=== PATIENT | male | born 1965 | race Caucasian/White ===

== ENCOUNTER 2018-05-09 14:32 | Emergency (ER) | payer BC ==
[2018-05-09] MEDS ORDERED: HYDROmorphone 2 MG/ML SDV IM ONE (15:05)
[2018-05-09] MEDS ORDERED: Diazepam 5 MG Tab PO ONE (15:05)
[2018-05-09] MEDS ORDERED: Ondansetron 4 MG Tab.DIS PO ONE (15:05)
--- NOTE | 2018-05-09 15:05 | EDM.PDOC ---
ED HPI GENERAL MEDICAL PROBLEM - General Chief Complaint: Back Pain or Injury Stated Complaint: BACK AND HIP PAIN Time Seen by Provider: 05/09/18 14:59 Source of Information: Reports: Patient History Limitations: Reports: No Limitations - History of Present Illness INITIAL COMMENTS - FREE TEXT/NARRATIVE: History of present illness: []Patient has had 3 weeks of low back pain that is now radiating down to his left hip to his left thigh and knee and ankle. Eyes any urinary or fecal incontinence or numbness and tingling. 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 Past medical history: As per history of present illness and as reviewed below otherwise noncontributory. Surgical history: As per history of present illness and as reviewed below otherwise noncontributory. Social history: No reported history of drug or alcohol abuse. Family history: As per history of present illness and as reviewed below otherwise noncontributory. Physical exam: General: Well developed, well nourished in NAD HEENT: Atraumatic, normocephalic, pupils reactive, negative for conjunctival pallor or scleral icterus, mucous membranes moist, throat clear, neck supple, nontender, trachea midline. Lungs: Clear to auscultation, breath sounds equal bilaterally, chest nontender. Heart: S1S2, regular, negative for clicks, rubs, or JVD. Abdomen: NABS, Soft, nondistended, nontender. Negative for masses or hepatosplenomegaly. Negative for costovertebral tenderness. Pelvis: Stable nontender. Genitourinary: Deferred. Rectal: Deferred. Extremities: Atraumatic, negative for cords or calf pain. Neurovascular unremarkable. Neuro: Awake, alert, oriented. Cranial nerves II through XII unremarkable. Cerebellum unremarkable. Motor and sensory unremarkable throughout. Exam nonfocal. Skin:warm and dry Diagnostics: None Therapeutics: Dilaudid, Valium and Zofran ED Course: Unremarkable Impression: Left-sided sciatica Prescriptions: External, tramadol Plan: Follow-up with Dr. Yeager Definitive disposition and diagnosis as appropriate pending reevaluation and review of above. Left Hip Pain Score (Numeric/FACES): 8 - Related Data Allergies Allergy/AdvReac Type Severity Reaction Status Date / Time latex Allergy Rash Verified 05/09/18 14:54 Home Meds: Home Meds Aspirin [Ifeoma Chewable] 81 mg PO DAILY 08/22/13 [History] Insulin Lispro Prot/Lispro [HumaLOG Mix 75-25] 50 unit .XX BID 08/22/13 [History ] Lisinopril [Prinivil] 10 mg PO DAILY 08/22/13 [History] atorvaSTATin [Lipitor] 40 mg PO BEDTIME 08/22/13 [History] metFORMIN HCl [Metformin HCl ER] 1,000 mg PO BID 08/22/13 [History] Ramipril [Altace] 1.25 mg PO DAILY 10/05/15 [History] Cyclobenzaprine [Flexeril] 10 mg PO BID PRN #12 tab 05/09/18 [Rx] traMADol HCl [Tramadol HCl] 50 mg PO Q6H PRN #16 tablet 05/09/18 [Rx] Past Medical History HEENT History: Reports: None Cardiovascular History: Reports: High Cholesterol, Hypertension Respiratory History: Reports: None Gastrointestinal History: Reports: None Genitourinary History: Reports: Renal Calculus Musculoskeletal History: Reports: None Neurological History: Reports: None Psychiatric History: Reports: None Endocrine/Metabolic History: Reports: Diabetes, Type I, Obesity/BMI 30+ Hematologic History: Reports: None Immunologic History: Reports: None Oncologic (Cancer) History: Reports: None Dermatologic History: Reports: None - Infectious Disease History Infectious Disease History: Reports: None - Past Surgical History Head Surgeries/Procedures: Reports: None GI Surgical History: Reports: Cholecystectomy Musculoskeletal Surgical History: Reports: Shoulder Surgery Social & Family History - Family History Family Medical History: Noncontributory - Tobacco Use Smoking Status *Q: Current Every Day Smoker Years of Tobacco use: 30 Packs/Tins Daily: 0.5 - Recreational Drug Use Recreational Drug Use: No ED ROS GENERAL - Review of Systems Review Of Systems: ROS reveals no pertinent complaints other than HPI. ED EXAM,LOWER BACK PAIN/INJURY - Physical Exam Exam: See Below (See history of present illness) Course - Vital Signs Last Recorded V/S: Last Vital Signs Temp 96.8 F 05/09/18 14:51 Pulse 100 05/09/18 14:51 Resp 18 05/09/18 14:51 BP 148/91 H 05/09/18 14:51 Pulse Ox 96 05/09/18 14:51 - Orders/Labs/Meds Orders: Active Orders 24 hr Category Date Time Status Blood Glucose Check, Bedside [RC] ONETIME Care 05/09/18 16:03 Ordered Labs: Laboratory Tests 05/09/18 Range/Units 16:05 POC Glucose 126 H (60-110) mg/dL Meds: Medications Discontinued Medications Generic Name Dose Route Start Last Admin Trade Name Sam PRN Reason Stop Dose Admin Diazepam 5 mg 05/09/18 15:05 05/09/18 15:22 Valium. PO 05/09/18 15:06 5 mg ONETIME ONE Administration Hydromorphone HCl 1 mg 05/09/18 15:05 05/09/18 15:15 Dilaudid IM 05/09/18 15:06 Not Given ONETIME ONE Hydromorphone HCl 1 mg 05/09/18 15:14 05/09/18 15:22 Dilaudid IM 05/09/18 15:15 1 mg ONETIME ONE Administration Ondansetron HCl 4 mg 05/09/18 15:05 05/09/18 15:22 Zofran Odt PO 05/09/18 15:06 4 mg ONETIME ONE Administration Departure - Departure Time of Disposition: 16:06 Disposition: Home, Self-Care 01 Condition: Good Clinical Impression: Sciatica of left side - Discharge Information *PRESCRIPTION DRUG MONITORING PROGRAM REVIEWED*: No *COPY OF PRESCRIPTION DRUG MONITORING REPORT IN PATIENT MARIA GUADALUPE: No Prescriptions: Cyclobenzaprine [Flexeril] 10 mg PO BID PRN #12 tab PRN Reason: Pain traMADol HCl [Tramadol HCl] 50 mg PO Q6H PRN #16 tablet PRN Reason: Pain Referrals: Xavi Abdul MD [Primary Care Provider] - Yumiko Hill DO [Physician] - (Call for Next available appointment) Forms: ED Department Discharge - My Orders Last 24 Hours: My Active Orders 05/09/18 16:03 Blood Glucose Check, Bedside [RC] ONETIME - Assessment/Plan Last 24 Hours: My Active Orders 05/09/18 16:03 Blood Glucose Check, Bedside [RC] ONETIME
[2018-05-09] MEDS ORDERED: HYDROmorphone 1 MG/ML Syringe IM ONE (15:14)
[2018-05-09 16:26] VITALS: BP 136/88
== END 2018-05-09 16:27 | disposition home or self-care (01) ==
LOC: MW.ED 14:32
DX: M54.42 Lumbago with sciatica, left side (principal); I10 Essential (primary) hypertension; E10.9 Type 1 diabetes mellitus without complications; E66.9 Obesity, unspecified; F17.210 Nicotine dependence, cigarettes, uncomplicated; Z91.040 Latex allergy status; Z79.82 Long term (current) use of aspirin; Z79.899 Other long term (current) drug therapy
CPT/HCPCS: 82962; 96372; 99283; A9270; J1170

== ENCOUNTER 2018-06-30 02:31 | Emergency (ER) | payer BC ==
[2018-06-30] MEDS ORDERED: Sodium Chloride 0.9% 1,000 ML IV ONE (02:48)
[2018-06-30] MEDS ORDERED: Ketorolac 30 MG/ML SDV IVPUSH ONE (02:48)
[2018-06-30] MEDS ORDERED: Ondansetron 4 MG/2 ML SDV IVPUSH ONE (02:48)
--- NOTE | 2018-06-30 02:49 | EDM.PDOC ---
ED HPI GENERAL MEDICAL PROBLEM - General Chief Complaint: Flank Pain Stated Complaint: ABDOMINAL PAIN Time Seen by Provider: 06/30/18 02:49 Source of Information: Reports: Patient - History of Present Illness INITIAL COMMENTS - FREE TEXT/NARRATIVE: HISTORY AND PHYSICAL: History of present illness: [pt presents with inabiity to urinate, c/o dribbling with urination and right flank pain, h/o renal stones, pain consistant with previous stones no f/n/v/c/s ] Review of systems: As per history of present illness and below otherwise all systems reviewed and negative. Past medical history: As per history of present illness and as reviewed below otherwise noncontributory. Surgical history: As per history of present illness and as reviewed below otherwise noncontributory. Social history: No reported history of drug or alcohol abuse. Family history: As per history of present illness and as reviewed below otherwise noncontributory. Physical exam: HEENT: Atraumatic, normocephalic, pupils reactive, negative for conjunctival pallor or scleral icterus, mucous membranes moist, throat clear, neck supple, nontender, trachea midline. Lungs: Clear to auscultation, breath sounds equal bilaterally, chest nontender. Heart: S1S2, regular, negative for clicks, rubs, or JVD. Abdomen: Soft, nondistended, nontender. Negative for masses or hepatosplenomegaly. Negative for costovertebral tenderness. Pelvis: Stable nontender. Genitourinary: Deferred. Rectal: Deferred. Extremities: Atraumatic, negative for cords or calf pain. Neurovascular unremarkable. Neuro: Awake, alert, oriented. Cranial nerves II through XII unremarkable. Cerebellum unremarkable. Motor and sensory unremarkable throughout. Exam nonfocal. Diagnostics: [cbc, cmp, ua trop lip bladder scan abd / pelvis ct no contrast ] Therapeutics: [normal saline toradol zofran ms 2mg fc ] Impression: [flank pain-reolved urine retention-resolved ] Definitive disposition and diagnosis as appropriate pending reevaluation and review of above. lower back Pain Score (Numeric/FACES): 6 - Related Data Allergies Allergy/AdvReac Type Severity Reaction Status Date / Time latex Allergy Rash Verified 06/30/18 02:43 Home Meds: Home Meds Aspirin [Ifeoma Chewable] 81 mg PO DAILY 08/22/13 [History] Insulin Lispro Prot/Lispro [HumaLOG Mix 75-25] 50 unit .XX BID 08/22/13 [History ] Lisinopril [Prinivil] 10 mg PO DAILY 08/22/13 [History] atorvaSTATin [Lipitor] 40 mg PO BEDTIME 08/22/13 [History] metFORMIN HCl [Metformin HCl ER] 1,000 mg PO BID 08/22/13 [History] Ramipril [Altace] 1.25 mg PO DAILY 10/05/15 [History] Cyclobenzaprine [Flexeril] 10 mg PO BID PRN #12 tab 05/09/18 [Rx] traMADol HCl [Tramadol HCl] 50 mg PO Q6H PRN #16 tablet 05/09/18 [Rx] Past Medical History HEENT History: Reports: None Cardiovascular History: Reports: High Cholesterol, Hypertension Respiratory History: Reports: None Gastrointestinal History: Reports: None Genitourinary History: Reports: Renal Calculus Musculoskeletal History: Reports: None Neurological History: Reports: None Psychiatric History: Reports: None Endocrine/Metabolic History: Reports: Diabetes, Type I, Obesity/BMI 30+ Hematologic History: Reports: None Immunologic History: Reports: None Oncologic (Cancer) History: Reports: None Dermatologic History: Reports: None - Infectious Disease History Infectious Disease History: Reports: None - Past Surgical History Head Surgeries/Procedures: Reports: None Cardiovascular Surgical History: Reports: None GI Surgical History: Reports: Cholecystectomy Male Surgical History: Reports: None Endocrine Surgical History: Reports: None Musculoskeletal Surgical History: Reports: Shoulder Surgery Social & Family History - Family History Family Medical History: Noncontributory - Tobacco Use Smoking Status *Q: Current Every Day Smoker Years of Tobacco use: 20 Packs/Tins Daily: 0.5 - Caffeine Use Caffeine Use: Reports: Coffee - Recreational Drug Use Recreational Drug Use: No ED ROS GENERAL - Review of Systems Review Of Systems: See Below ED EXAM, GENERAL - Physical Exam Exam: See Below Course - Vital Signs Last Recorded V/S: Last Vital Signs Temp 97.2 F 06/30/18 02:40 Pulse 107 H 06/30/18 02:40 Resp 19 06/30/18 02:40 BP 145/85 H 06/30/18 02:40 Pulse Ox 97 06/30/18 02:40 - Orders/Labs/Meds Labs: Laboratory Tests 06/30/18 06/30/1806/30/19 Range/Units 02:50 02:55 02:55 WBC 12.80 H (4.0-11.0) K/uL RBC 4.62 (4.50-5.90) M/uL Hgb 15.1 (13.0-17.0) g/dL Hct 45.3 (38.0-50.0) % MCV 98.1 H (80.0-98.0) fL MCH 32.7 H (27.0-32.0) pg MCHC 33.3 (31.0-37.0) g/dL RDW Std Deviation 48.2 (28.0-62.0) fl RDW Coeff of Benny 14 (11.0-15.0) % Plt Count 214 (150-400) K/uL MPV 11.50 (7.40-12.00) fL Neut % (Auto) 79.1 (48.0-80.0) % Lymph % (Auto) 14.9 L (16.0-40.0) % Bremer % (Auto) 5.8 (0.0-15.0) % Eos % (Auto) 0.1 (0.0-7.0) % Baso % (Auto) 0.1 (0.0-1.5) % Neut # (Auto) 10.1 H (1.4-5.7) K/uL Lymph # (Auto) 1.9 (0.6-2.4) K/uL Bremer # (Auto) 0.7 (0.0-0.8) K/uL Eos # (Auto) 0.0 (0.0-0.7) K/uL Baso # (Auto) 0.0 (0.0-0.1) K/uL Sodium 133 L (136-148) mmol/L Potassium 4.3 (3.5-5.1) mmol/L Chloride 99 (98-107) mmol/L Carbon Dioxide 21.6 (21.0-32.0) mmol/L BUN 17 (7.0-18.0) mg/dL Creatinine 1.0 (0.8-1.3) mg/dL Est Cr Clr Drug Dosing 88.21 mL/min Estimated GFR (MDRD) > 60.0 ml/min Glucose 168 H (74-106) mg/dL Calcium 8.6 (8.5-10.1) mg/dL Total Bilirubin 0.4 (0.2-1.0) mg/dL AST 18 (15-37) IU/L ALT 23 (14-63) IU/L Alkaline Phosphatase 66 (46-116) U/L Troponin I < 0.050 (0.000-0.056) ng/mL Total Protein 8.1 (6.4-8.2) g/dL Albumin 4.0 (3.4-5.0) g/dL Globulin 4.1 H (2.6-4.0) g/dL Albumin/Globulin Ratio 1.0 (0.9-1.6) Lipase 133 (73-393) U/L Urine Color YELLOW Urine Appearance CLEAR Urine pH 5.5 (5.0-8.0) Ur Specific Ball 1.020 (1.001-1.035) Urine Protein NEGATIVE (NEGATIVE) mg/dL Urine Glucose (UA) NEGATIVE (NEGATIVE) mg/dL Urine Ketones 15 H (NEGATIVE) mg/dL Urine Occult Blood TRACE-INTACT H (NEGATIVE) Urine Nitrite NEGATIVE (NEGATIVE) Urine Bilirubin NEGATIVE (NEGATIVE) Urine Urobilinogen 0.2 (<2.0) EU/dL Ur Leukocyte Esterase NEGATIVE (NEGATIVE) Urine RBC 0-3 (0-2/HPF) Urine WBC 0-1 (0-5/HPF) Ur Epithelial Cells RARE (NONE-FEW) Urine Bacteria FEW (NEGATIVE) Meds: Medications Discontinued Medications Generic Name Dose Route Start Last Admin Trade Name Freq PRN Reason Stop Dose Admin Hydromorphone HCl 1 mg 06/30/18 03:14 06/30/18 03:31 Dilaudid IVPUSH 06/30/18 03:15 Not Given ONETIME ONE Hydromorphone HCl Confirm 06/30/18 03:24 06/30/18 03:31 Dilaudid Administered 06/30/18 03:25 Not Given Dose 1 mg .ROUTE .STK-MED ONE Hydromorphone HCl 1 mg 06/30/18 03:30 06/30/18 03:30 Dilaudid IVPUSH 06/30/18 03:31 1 mg NOW STA Administration Sodium Chloride 1,000 mls @ 999 mls/hr 06/30/18 02:48 06/30/18 02:53 Normal Saline IV 06/30/18 03:48 999 mls/hr STAT ONE Administration Ketorolac Tromethamine 30 mg 06/30/18 02:48 06/30/18 02:54 Toradol IVPUSH 06/30/18 02:49 30 mg ONETIME ONE Administration Ondansetron HCl 8 mg 06/30/18 02:48 06/30/18 02:54 Zofran IVPUSH 06/30/18 02:49 8 mg ONETIME ONE Administration Departure - Departure Time of Disposition: 05:00 Disposition: Home, Self-Care 01 Condition: Good Clinical Impression: Urine retention - Discharge Information Referrals: PCP,None [Primary Care Provider] - Forms: ED Department Discharge Additional Instructions: stop flexeril return in 48 hours to remove lee catheter The following information is given to patients seen in the emergency department who are being discharged to home. This information is to outline your options for follow-up care. We provide all patients seen in our emergency department with a follow-up referral. The need for follow-up, as well as the timing and circumstances, are variable depending upon the specifics of your emergency department visit. If you don't have a primary care physician on staff, we will provide you with a referral. We always advise you to contact your personal physician following an emergency department visit to inform them of the circumstance of the visit and for follow-up with them and/or the need for any referrals to a consulting specialist. The emergency department will also refer you to a specialist when appropriate. This referral assures that you have the opportunity for follow-up care with a specialist. All of these measure are taken in an effort to provide you with optimal care, which includes your follow-up. Under all circumstances we always encourage you to contact your private physician who remains a resource for coordinating your care. When calling for follow-up care, please make the office aware that this follow-up is from your recent emergency room visit. If for any reason you are refused follow-up, please contact the [facility] emergency department at and asked to speak to the emergency department charge nurse.
[2018-06-30] MEDS ORDERED: HYDROmorphone 2 MG/ML SDV IVPUSH ONE (03:14)
[2018-06-30] MEDS ORDERED: HYDROmorphone 1 MG/ML Syringe ONE (03:24)
[2018-06-30 03:27] LABS: CHLORIDE,CL 99 mmol/L (98-107); SODIUM,NA 133 mmol/L (136-148)
[2018-06-30] MEDS ORDERED: HYDROmorphone 1 MG/ML Syringe IVPUSH STA (03:30)
--- NOTE | 2018-06-30 04:17 | CT ---
INDICATION: Right flank pain TECHNIQUE: CT abdomen and pelvis without contrast. COMPARISON: Abdomen and pelvis CT 01/15/2016 FINDINGS: Lower chest: Unremarkable. Liver: Normal in size and attenuation. No masses. Gallbladder and bile ducts: Status post cholecystectomy. Pancreas: Unremarkable. No mass or inflammation. Spleen: Normal in size. No masses. Adrenal glands: Normal in size. No nodules. Kidneys: Exophytic right renal cyst measuring 4.4 centimeters. Minimal bilateral hydronephrosis which extends to the level of the bladder without definite ureteral stone. GI tract: The stomach is unremarkable. There are no dilated loops of bowel. Terminal ileum is unremarkable. Appendix unremarkable. Vasculature: Atherosclerosis. Subcentimeter retroperitoneal lymph nodes. Pelvis: Mild prostatic enlargement. Moderate distention of the bladder. Bones: Unremarkable for age. IMPRESSION: 1. Minimal bilateral hydronephrosis extending to the level of the bladder with moderate bladder distention. No definite ureteral stone. Mild prostatic enlargement. 2. No dilated loops of large or small intestine. Unremarkable appendix. Please note that all CT scans at this facility use dose modulation, iterative reconstruction, and/or weight-based dosing when appropriate to reduce radiation dose to as low as reasonably achievable. Dictated by Addi Patiño MD @ Jun 30 2018 4:07AM Signed by Dr. Addi Patiño @ Jun 30 2018 4:15AM
[2018-06-30 05:39] VITALS: BP 103/64
== END 2018-06-30 05:40 | disposition home or self-care (01) ==
LOC: MW.ED 02:31
DX: R33.9 Retention of urine, unspecified (principal); F17.210 Nicotine dependence, cigarettes, uncomplicated; Z79.899 Other long term (current) drug therapy; Z79.82 Long term (current) use of aspirin; Z79.84 Long term (current) use of oral hypoglycemic drugs
CPT/HCPCS: 74176; 80053; 81001; 83690; 84484; 85025; 96361; 96374; 96375; 99284; J1170; J1885; J2405; J7040

== ENCOUNTER 2018-07-01 06:54 | Emergency (ER) | payer BC ==
[2018-07-01 13:16] VITALS: BP 138/97
== END 2018-07-01 07:43 | disposition left against medical advice (07) ==
LOC: MW.ED 06:54
DX: Z53.21 Procedure and treatment not carried out due to patient leaving prior to being seen by health care provider (principal)
CPT/HCPCS: 99283

== ENCOUNTER 2019-03-05 11:48 | Emergency (ER) | payer BC ==
[2019-03-05] MEDS ORDERED: HYDROmorphone 1 MG/ML Syringe IM ONE (12:08)
--- NOTE | 2019-03-05 12:12 | EDM.PDOC ---
ED HPI GENERAL MEDICAL PROBLEM - General Chief Complaint: Back Pain or Injury Stated Complaint: BACK PAIN Time Seen by Provider: 03/05/19 11:50 Source of Information: Reports: Patient History Limitations: Reports: No Limitations - History of Present Illness INITIAL COMMENTS - FREE TEXT/NARRATIVE: HISTORY AND PHYSICAL: History of present illness: patient is a 53-year-old male who presents to the emergency room with complaints of chronic low lumbar back pain. He states this has been intermittently bothering him over the past few years. Most recently he saw Dr. Small who had performed an MRI (06/19) which showed multilevel degenerative disc disease. He was informed that his back pain was "not bad enough to require surgery". He has been using Tylenol, ibuprofen, tramadol and muscle relaxers in the past to help with his discomfort. He also does massage and chiropractic therapy with minimal relief. He states for the past few months he has done well with [id number] products. A few days ago he was trying to get up out of his recliner when he felt sharp pain that radiates across the entire lumbar region into the right gluteus and posterior hamstring. He did try to get into his primary care provider but is not able to get an appointment until 03/26/19. Yesterday he had tried to use massage therapy and an adjustment by the chiropractor without any relief. He denies any new injury, trauma or falls. He denies any urinary or fecal incontinence. Denies any numbness, tingling or extremity weakness. No systemic complaints. Review of systems: As per history of present illness and below otherwise all systems reviewed and negative. Past medical history: As per history of present illness and as reviewed below otherwise noncontributory. Surgical history: As per history of present illness and as reviewed below otherwise noncontributory. Social history: See social history for further information Family history: As per history of present illness and as reviewed below otherwise noncontributory. Physical exam: General: well-developed and well-nourished 53-year-old male. Alert and oriented. Nontoxic appearing and in no acute distress. HEENT: Atraumatic, normocephalic, pupils equal and reactive bilaterally, negative for conjunctival pallor or scleral icterus, mucous membranes moist, trachea midline. No drooling or trismus noted. No meningeal signs. No hot potato voice noted. Lungs: Clear to auscultation, breath sounds equal bilaterally, chest nontender. Heart: S1S2, regular rate and rhythm without overt murmur Abdomen: Soft, nondistended, nontender. Negative for costovertebral tenderness. Pelvis: Stable nontender. C-spine/Back: No pinpoint vertebral tenderness upon palpation. No crepitus, step -offs or obvious deformities. Patient is ambulatory into the emergency room without difficulty or deficit. Able to rock back on heels and walk on toes. Denies any urinary or fecal incontinence. Denies any numbness, tingling or saddle paresthesia. Skin: Intact, warm, dry. No lesions or rashes noted. Extremities: Atraumatic, moves all extremities per self without difficulty or deficits, negative for cords or calf pain. Neurovascular unremarkable. Neuro: Awake, alert, oriented. Cranial nerves II through XII unremarkable. Cerebellum unremarkable. Motor and sensory unremarkable throughout. Exam nonfocal. Notes: patient states that he prefers not to use any muscle relaxers as he has had a problem with urinary retention with these. Supportive care measures were reviewed and discussed. Voices understanding and is agreeable to plan of care. Denies any further questions or concerns at this time. Diagnostics: Declines Therapeutics: Dilaudid IM Prescription: Galata Medrol Dose jay jay Impression: Chronic lumbar back pain Plan: 1. The medication you received today does cause drowsiness, so do not drive for the remaining day 2. When resting please lay on a flat firm surface. Limit your immobility to prevent muscle stiffness. Get up to ambulate/move around/gentle stretching multiple times throughout the day. May alternate heat and ice to the painful areas 3. Tylenol and/or Ibuprofen as needed for back pain. Galata as directed, this medication may cause drowsiness a do not take it will driving her needing to be functioning outside of the house. 4. Please follow-up with your primary care provider as we discussed. Return to the ED as needed and as discussed. Definitive disposition and diagnosis as appropriate pending reevaluation and review of above. lower back Pain Score (Numeric/FACES): 10 - Related Data Allergies Allergy/AdvReac Type Severity Reaction Status Date / Time latex Allergy Rash Verified 03/05/19 11:54 Home Meds: Home Meds Aspirin [Ifeoma Chewable] 81 mg PO DAILY 08/22/13 [History] Insulin Lispro Prot/Lispro [HumaLOG Mix 75-25] 50 unit .XX BID 08/22/13 [History ] Lisinopril [Prinivil] 10 mg PO DAILY 08/22/13 [History] atorvaSTATin [Lipitor] 40 mg PO BEDTIME 08/22/13 [History] metFORMIN HCl [Metformin HCl ER] 1,000 mg PO BID 08/22/13 [History] Ramipril [Altace] 1.25 mg PO DAILY 10/05/15 [History] Acetaminophen/HYDROcodone [Galata 325-5 MG] 1 dose PO Q4H #20 tablet 03/05/19 [Rx ] methylPREDNISolone [Medrol] 1 dose PO DAILY 6 Days #1 dospk 03/05/19 [Rx] Past Medical History HEENT History: Reports: None Cardiovascular History: Reports: High Cholesterol, Hypertension Respiratory History: Reports: None Gastrointestinal History: Reports: None Genitourinary History: Reports: Renal Calculus Musculoskeletal History: Reports: None Neurological History: Reports: None Psychiatric History: Reports: None Endocrine/Metabolic History: Reports: Diabetes, Type I, Obesity/BMI 30+ Hematologic History: Reports: None Immunologic History: Reports: None Oncologic (Cancer) History: Reports: None Dermatologic History: Reports: None - Infectious Disease History Infectious Disease History: Reports: None - Past Surgical History Head Surgeries/Procedures: Reports: None HEENT Surgical History: Reports: None Cardiovascular Surgical History: Reports: None Respiratory Surgical History: Reports: None GI Surgical History: Reports: Cholecystectomy Male Surgical History: Reports: None Endocrine Surgical History: Reports: None Neurological Surgical History: Reports: None Musculoskeletal Surgical History: Reports: Shoulder Surgery Dermatological Surgical History: Reports: None Social & Family History - Family History Family Medical History: Noncontributory - Tobacco Use Smoking Status *Q: Current Every Day Smoker Years of Tobacco use: 30 Packs/Tins Daily: 0.4 - Caffeine Use Caffeine Use: Reports: Coffee, Soda - Recreational Drug Use Recreational Drug Use: No ED ROS GENERAL - Review of Systems Review Of Systems: ROS reveals no pertinent complaints other than HPI. ED EXAM,LOWER BACK PAIN/INJURY - Physical Exam Exam: See Below (See dictation) Course - Vital Signs Last Recorded V/S: Last Vital Signs Temp 97.2 F 03/05/19 11:57 Pulse 84 03/05/19 11:57 Resp 18 03/05/19 11:57 BP 154/83 H 03/05/19 11:57 Pulse Ox 97 03/05/19 11:57 - Orders/Labs/Meds Meds: Medications Discontinued Medications Generic Name Dose Route Start Last Admin Trade Name Sam PRN Reason Stop Dose Admin Hydromorphone HCl 1 mg 03/05/19 12:08 Dilaudid IM 03/05/19 12:09 ONETIME ONE Departure - Departure Time of Disposition: 12:11 Disposition: Home, Self-Care 01 Clinical Impression: Chronic back pain Qualifiers: Back pain location: low back pain Back pain laterality: bilateral Sciatica presence: with sciatica Sciatica laterality: sciatica of right side Qualified Code(s): M54.41 - Lumbago with sciatica, right side; G89.29 - Other chronic pain - Discharge Information Prescriptions: Acetaminophen/HYDROcodone [Galata 325-5 MG] 1 dose PO Q4H #20 tablet methylPREDNISolone [Medrol] 1 dose PO DAILY 6 Days #1 dospk Instructions: Chronic Back Pain, [id number] Referrals: Xavi Abdul MD [Primary Care Provider] - Forms: ED Department Discharge Additional Instructions: The following information is given to patients seen in the emergency department who are being discharged to home. This information is to outline your options for follow-up care. We provide all patients seen in our emergency department with a follow-up referral. The need for follow-up, as well as the timing and circumstances, are variable depending upon the specifics of your emergency department visit. If you don't have a primary care physician on staff, we will provide you with a referral. We always advise you to contact your personal physician following an emergency department visit to inform them of the circumstance of the visit and for follow-up with them and/or the need for any referrals to a consulting specialist. The emergency department will also refer you to a specialist when appropriate. This referral assures that you have the opportunity for follow-up care with a specialist. All of these measure are taken in an effort to provide you with optimal care, which includes your follow-up. Under all circumstances we always encourage you to contact your private physician who remains a resource for coordinating your care. When calling for follow-up care, please make the office aware that this follow-up is from your recent emergency room visit. If for any reason you are refused follow-up, please contact the [facility] at and asked to speak to the emergency department charge nurse. [facility] [address] [place] [address] [facility] [address] [place] [id number] 1. The medication you received today does cause drowsiness, so do not drive for the remaining day 2. When resting please lay on a flat firm surface. Limit your immobility to prevent muscle stiffness. Get up to ambulate/move around/gentle stretching multiple times throughout the day. May alternate heat and ice to the painful areas 3. Tylenol and/or Ibuprofen as needed for back pain. Oliver as directed, this medication may cause drowsiness a do not take it will driving her needing to be functioning outside of the house. 4. Please follow-up with your primary care provider as we discussed. Return to the ED as needed and as discussed.
[2019-03-05 12:36] VITALS: BP 128/72; PULSE 73
== END 2019-03-05 12:37 | disposition home or self-care (01) ==
LOC: MW.ED 11:48
DX: M54.41 Lumbago with sciatica, right side (principal); I10 Essential (primary) hypertension; E10.9 Type 1 diabetes mellitus without complications; E66.9 Obesity, unspecified; E78.00 Pure hypercholesterolemia, unspecified; F17.210 Nicotine dependence, cigarettes, uncomplicated; Z68.30 Body mass index [BMI] 30.0-30.9, adult; Z79.4 Long term (current) use of insulin; Z79.82 Long term (current) use of aspirin; Z79.899 Other long term (current) drug therapy; Z91.040 Latex allergy status
CPT/HCPCS: 96372; 99283; J1170

== ENCOUNTER 2019-03-12 10:57 | Day surgery (SDC) | payer BC ==
[~2019-03-12 10:57] MED LIST: Betamethasone Acetate/Betamethasone Sod Phosphate 30 MG/5 ML MDV EPIDUR ONE; Iopamidol 200-M 10 ML vial ITHECAL ONE; Lidocaine 2% 5 ML SDV INJECT ONE; Ropivacaine 0.5% 5 MG/ML 30 ML SDV INJECT ONE
--- NOTE | 2019-03-12 21:53 | OR ---
SURGEON: Yumiko Hill D.O. DATE OF PROCEDURE: 03/12/2019 PRIMARY SURGEON: Yumiko Hill D.O. DIVISION HEAD: OR staff present: 1. RT Mary Jane. 2. Maria Redd RN. 3. KENNEY Harp. PREOPERATIVE DIAGNOSES: 1. Lumbar degenerative disk disease and Lumbar spinal stenosis, L3-4, L4-5, and L5-S1. 3. Chronic low back pain. POSTOPERATIVE DIAGNOSES: 1. Lumbar degenerative disk disease. and Lumbar spinal stenosis, L3-4, L4-5, and L5-S1. 2. Chronic low back pain. PROCEDURES PERFORMED: 1. Lumbar intralaminar epidural steroid injection at L4-5. 2. Fluoroscopic guidance for needle placement. 3. Local with oral Valium for sedation. SCREENING QUESTIONS: The patient answered "no" to all of the following questions: 1. Are you allergic to latex? 2. Do you have a bleeding disorder? 3. Do you have any current local or systemic infections? 4. Are you taking any anti-inflammatories or blood thinners? 5. Do you have any joint replacements, heart valve replacements, or a pacemaker? DESCRIPTION OF PROCEDURE: The patient had the procedure thoroughly explained including all possible risks, benefits and alternatives. Consent was signed in my clinic indicating understanding and willingness to proceed. The patient presented to [facility] and was escorted to the dressing room to disrobe and change into a hospital gown. Preoperative vital signs were taken and stable. The patient reported that Valium was taken prior to the procedure. The patient was brought back to the procedure room and placed in the prone position on the procedure room table. A pillow was placed under the hips in order to flatten the lumbar lordosis. The back was prepped with ChloraPrep and sterilely draped. All personnel in the operating room were dressed in appropriate attire including surgical scrubs, head and shoe covers. This was to ensure sterility while in the treatment room. During the time fluoroscopy was in use, all personnel in the operating room wore lead hand with thyroid collars. Sterile technique was used throughout the procedure. The patient was awake and conversant throughout the procedure. There was no evidence of infection at the site of needle insertion. Skeletal landmarks were identified under fluoroscopy for the lumbar epidural. Skin was anesthetized with 2% lidocaine with a sterile 27-gauge 1.5 inch needle. Then a 20-gauge Tuohy epidural needle was placed in the epidural space with loss of resistance technique under fluoroscopic guidance. No heme, cerebrospinal fluid, or paresthesias were noted. Isovue-200 contrast dye was injected in 0.2 cubic centimeter increments and seen to outline the epidural space in both AP and lateral views. There was no intravascular flow pattern observed under live fluoroscopy. Then 12 milligrams of Celestone and local was slowly injected after negative aspiration. The patient tolerated the procedure well. Vital signs were stable during and after the procedure. The staff escorted the patient to the recovery area. After the procedure and the recovery room patient complained of a severe frontal headache that was non-positional. He had elevated blood sugar at 151. I recommended he have an IV fluids and he stated the headache was much improved and he was drinking fluids and declined an IV. The patient was released in stable condition after a brief stay in the recovery room monitored by the nurse. The patient was given both oral and written discharge and follow up instructions with recommendation to follow up given for 2-3 weeks. The patient voiced understanding including understanding of those signs and symptoms that would require emergency care. The patient knows how to contact the office if there are any additional problems or questions in the meantime. PREOPERATIVE PAIN: /10. POSTOPERATIVE PAIN: /10. FOLLOWUP: Follow up in the Pain Clinic in 3 weeks. CARLOS A YEBOAH /[id number] KRISTIAN
== END 2019-03-12 13:30 | disposition home or self-care (01) ==
LOC: MW.SDS 10:57
PROVIDERS: ATTEND Anesthesiology
DX: G89.29 Other chronic pain (principal); M51.16 Intervertebral disc disorders with radiculopathy, lumbar region; M48.061 Spinal stenosis, lumbar region without neurogenic claudication; M48.07 Spinal stenosis, lumbosacral region; M51.17 Intervertebral disc disorders with radiculopathy, lumbosacral region; M79.18 Myalgia, other site; M47.26 Other spondylosis with radiculopathy, lumbar region; E11.9 Type 2 diabetes mellitus without complications; Z91.040 Latex allergy status; Z79.82 Long term (current) use of aspirin; Z79.4 Long term (current) use of insulin; Z79.899 Other long term (current) drug therapy
CPT/HCPCS: 62323; 82962; J0702

== ENCOUNTER 2019-03-12 19:51 | Emergency (ER) | payer BC ==
[2019-03-12] MEDS ORDERED: Sodium Chloride 0.9% 1,000 ML IV ONE (19:56)
--- NOTE | 2019-03-12 19:59 | EDM.PDOC ---
ED HPI GENERAL MEDICAL PROBLEM - General Chief Complaint: Cardiovascular Problem Stated Complaint: POST SURGERY ISSUES Time Seen by Provider: 03/12/19 19:54 - History of Present Illness INITIAL COMMENTS - FREE TEXT/NARRATIVE: HISTORY AND PHYSICAL: History of present illness: Patient 53-year-old white male history chronic back pain who had spinal steroid injection earlier today with subsequent headache he's also had elevated blood sugar she states had palpitations at times systolically and he denies chest pain nausea vomiting fever chills his headache is somewhat postural worse with sitting or standing improved with lying Review of systems: As per history of present illness and below otherwise all systems reviewed and negative. Past medical history: As per history of present illness and as reviewed below otherwise noncontributory. Surgical history: As per history of present illness and as reviewed below otherwise noncontributory. Social history: No reported history of drug or alcohol abuse. Family history: As per history of present illness and as reviewed below otherwise noncontributory. Physical exam: HEENT: Atraumatic, normocephalic, pupils reactive, negative for conjunctival pallor or scleral icterus, mucous membranes moist, throat clear, neck supple, nontender, trachea midline. Lungs: Clear to auscultation, breath sounds equal bilaterally, chest nontender. Heart: S1S2, regular, negative for clicks, rubs, or JVD. Abdomen: Soft, nondistended, nontender. Negative for masses or hepatosplenomegaly. Negative for costovertebral tenderness. Pelvis: Stable nontender. Genitourinary: Deferred. Rectal: Deferred. Extremities: Atraumatic, negative for cords or calf pain. Neurovascular unremarkable. Neuro: Awake, alert, oriented. Cranial nerves II through XII unremarkable. Cerebellum unremarkable. Motor and sensory unremarkable throughout. Exam nonfocal. Diagnostics: CBC CMP troponin PT/INR chest x-ray ABG EKG Therapeutics: Saline 1 L bolus blood patch per anesthesia Impression: #1 palpitations #2 hyperglycemia #3 recent spinal steroid injection #4 chronic back pain Definitive disposition and diagnosis as appropriate pending reevaluation and review of above. back area Pain Score (Numeric/FACES): 5 - Related Data Allergies Allergy/AdvReac Type Severity Reaction Status Date / Time latex Allergy Rash Verified 03/12/19 19:53 Home Meds: Home Meds Aspirin [Ifeoma Chewable] 81 mg PO DAILY 08/22/13 [History] Insulin Lispro Prot/Lispro [HumaLOG Mix 75-25] 50 unit .XX BID 08/22/13 [History ] Lisinopril [Prinivil] 10 mg PO DAILY 08/22/13 [History] atorvaSTATin [Lipitor] 40 mg PO BEDTIME 08/22/13 [History] metFORMIN HCl [Metformin HCl ER] 1,000 mg PO BID 08/22/13 [History] Ramipril [Altace] 1.25 mg PO DAILY 10/05/15 [History] Acetaminophen/HYDROcodone [Mclean 325-5 MG] 1 dose PO Q4H #20 tablet 03/05/19 [Rx ] methylPREDNISolone [Medrol] 1 dose PO DAILY 6 Days #1 dospk 03/05/19 [Rx] Past Medical History HEENT History: Reports: None Cardiovascular History: Reports: High Cholesterol, Hypertension Respiratory History: Reports: None Gastrointestinal History: Reports: None Genitourinary History: Reports: Renal Calculus Musculoskeletal History: Reports: None Neurological History: Reports: None Psychiatric History: Reports: None Endocrine/Metabolic History: Reports: Diabetes, Type I, Obesity/BMI 30+ Hematologic History: Reports: None Immunologic History: Reports: None Oncologic (Cancer) History: Reports: None Dermatologic History: Reports: None - Infectious Disease History Infectious Disease History: Reports: None - Past Surgical History Head Surgeries/Procedures: Reports: None HEENT Surgical History: Reports: None Cardiovascular Surgical History: Reports: None Respiratory Surgical History: Reports: None GI Surgical History: Reports: Cholecystectomy Male Surgical History: Reports: None Endocrine Surgical History: Reports: None Neurological Surgical History: Reports: None Musculoskeletal Surgical History: Reports: Shoulder Surgery Dermatological Surgical History: Reports: None Social & Family History - Family History Family Medical History: Noncontributory - Caffeine Use Caffeine Use: Reports: Coffee, Soda ED ROS GENERAL - Review of Systems Review Of Systems: Comprehensive ROS is negative, except as noted in HPI. ED EXAM, GENERAL - Physical Exam Exam: See Below (See dictation) Course - Vital Signs Text/Narrative:: Discussed with patient admission for observation patient declines agrees to close follow-up with his private doctor and return as needed as discussed Last Recorded V/S: Last Vital Signs Temp 36.3 C 03/12/19 20:59 Pulse 84 03/12/19 20:59 Resp 18 03/12/19 20:59 BP 144/89 H 03/12/19 20:59 Pulse Ox 95 03/12/19 20:59 - Orders/Labs/Meds Orders: Active Orders 24 hr Category Date Time Status Blood Glucose Check, Bedside [RC] ONETIME Care 03/12/19 21:00 Active EKG 12 Lead [EKG Documentation Completion] [RC] STAT Care 03/12/19 20:36 Active EKG Documentation Completion [RC] STAT Care 03/12/19 19:56 Active Labs: Laboratory Tests 03/12/19 03/12/19 03/12/19 Range/Units 19:45 19:45 19:45 WBC 9.79 (4.0-11.0) K/uL RBC 4.95 (4.50-5.90) M/uL Hgb 16.6 (13.0-17.0) g/dL Hct 48.8 (38.0-50.0) % MCV 98.6 H (80.0-98.0) fL MCH 33.5 H (27.0-32.0) pg MCHC 34.0 (31.0-37.0) g/dL RDW Std Deviation 51.4 (28.0-62.0) fl RDW Coeff of Benny 14 (11.0-15.0) % Plt Count 238 (150-400) K/uL MPV 11.80 (7.40-12.00) fL Neut % (Auto) 83.8 H (48.0-80.0) % Lymph % (Auto) 11.7 L (16.0-40.0) % Bowie % (Auto) 4.4 (0.0-15.0) % Eos % (Auto) 0.0 (0.0-7.0) % Baso % (Auto) 0.1 (0.0-1.5) % Neut # (Auto) 8.2 H (1.4-5.7) K/uL Lymph # (Auto) 1.2 (0.6-2.4) K/uL Bowie # (Auto) 0.4 (0.0-0.8) K/uL Eos # (Auto) 0.0 (0.0-0.7) K/uL Baso # (Auto) 0.0 (0.0-0.1) K/uL Nucleated RBC % 0.0 /100WBC Nucleated RBCs # 0 K/uL INR 0.93 ABG pH (7.35-7.45) ABG pCO2 (35-45) mmHG ABG pO2 (75-100) mmHG ABG HCO3 (22-26) mEq/L ABG Total CO2 ABG Base Excess (-2.0-2.0) Sodium 137 (136-148) mmol/L Potassium 4.8 (3.5-5.1) mmol/L Chloride 103 (98-107) mmol/L Carbon Dioxide 20.1 L (21.0-32.0) mmol/L BUN 18 (7.0-18.0) mg/dL Creatinine 1.2 (0.8-1.3) mg/dL Est Cr Clr Drug Dosing 72.66 mL/min Estimated GFR (MDRD) > 60.0 ml/min Glucose 384 H (74-106) mg/dL POC Glucose (60-110) mg/dL Calcium 9.0 (8.5-10.1) mg/dL Total Bilirubin 0.3 (0.2-1.0) mg/dL AST 10 L (15-37) IU/L ALT 29 (14-63) IU/L Alkaline Phosphatase 59 (46-116) U/L Troponin I < 0.050 (0.000-0.056) ng/mL Total Protein 8.0 (6.4-8.2) g/dL Albumin 3.9 (3.4-5.0) g/dL Globulin 4.1 H (2.6-4.0) g/dL Albumin/Globulin Ratio 1.0 (0.9-1.6) Urine Color Urine Appearance Urine pH (5.0-8.0) Ur Specific [place] (1.001-1.035) Urine Protein (NEGATIVE) mg/dL Urine Glucose (UA) (NEGATIVE) mg/dL Urine Ketones (NEGATIVE) mg/dL Urine Occult Blood (NEGATIVE) Urine Nitrite (NEGATIVE) Urine Bilirubin (NEGATIVE) Urine Urobilinogen (<2.0) EU/dL Ur Leukocyte Esterase (NEGATIVE) 03/12/19 03/12/19 03/12/19 Range/Units 19:58 20:40 20:56 WBC (4.0-11.0) K/uL RBC (4.50-5.90) M/uL Hgb (13.0-17.0) g/dL Hct (38.0-50.0) % MCV (80.0-98.0) fL MCH (27.0-32.0) pg MCHC (31.0-37.0) g/dL RDW Std Deviation (28.0-62.0) fl RDW Coeff of Benny (11.0-15.0) % Plt Count (150-400) K/uL MPV (7.40-12.00) fL Neut % (Auto) (48.0-80.0) % Lymph % (Auto) (16.0-40.0) % Bowie % (Auto) (0.0-15.0) % Eos % (Auto) (0.0-7.0) % Baso % (Auto) (0.0-1.5) % Neut # (Auto) (1.4-5.7) K/uL Lymph # (Auto) (0.6-2.4) K/uL Bowie # (Auto) (0.0-0.8) K/uL Eos # (Auto) (0.0-0.7) K/uL Baso # (Auto) (0.0-0.1) K/uL Nucleated RBC % /100WBC Nucleated RBCs # K/uL INR ABG pH 7.392 (7.35-7.45) ABG pCO2 31 L (35-45) mmHG ABG pO2 74 L (75-100) mmHG ABG HCO3 19 L (22-26) mEq/L ABG Total CO2 16.5 ABG Base Excess -4.9 L (-2.0-2.0) Sodium (136-148) mmol/L Potassium (3.5-5.1) mmol/L Chloride (98-107) mmol/L Carbon Dioxide (21.0-32.0) mmol/L BUN (7.0-18.0) mg/dL Creatinine (0.8-1.3) mg/dL Est Cr Clr Drug Dosing mL/min Estimated GFR (MDRD) ml/min Glucose (74-106) mg/dL POC Glucose 267 H (60-110) mg/dL Calcium (8.5-10.1) mg/dL Total Bilirubin (0.2-1.0) mg/dL AST (15-37) IU/L ALT (14-63) IU/L Alkaline Phosphatase (46-116) U/L Troponin I (0.000-0.056) ng/mL Total Protein (6.4-8.2) g/dL Albumin (3.4-5.0) g/dL Globulin (2.6-4.0) g/dL Albumin/Globulin Ratio (0.9-1.6) Urine Color YELLOW Urine Appearance CLEAR Urine pH 5.5 (5.0-8.0) Ur Specific [place] 1.010 (1.001-1.035) Urine Protein NEGATIVE (NEGATIVE) mg/dL Urine Glucose (UA) >=1000 (NEGATIVE) mg/dL Urine Ketones TRACE H (NEGATIVE) mg/dL Urine Occult Blood NEGATIVE (NEGATIVE) Urine Nitrite NEGATIVE (NEGATIVE) Urine Bilirubin NEGATIVE (NEGATIVE) Urine Urobilinogen 0.2 (<2.0) EU/dL Ur Leukocyte Esterase NEGATIVE (NEGATIVE) Meds: Medications Discontinued Medications Generic Name Dose Route Start Last Admin Trade Name Sam PRN Reason Stop Dose Admin Sodium Chloride 1,000 mls @ 999 mls/hr 03/12/19 19:56 03/12/19 19:59 Normal Saline IV 03/12/19 20:56 999 mls/hr BOLUS ONE Administration Departure - Departure Time of Disposition: 21:34 Disposition: Home, Self-Care 01 Condition: Good Clinical Impression: Hyperglycemia, Encounter for medical screening examination Chronic back pain Qualifiers: Back pain location: low back pain Back pain laterality: bilateral Sciatica presence: with sciatica Sciatica laterality: sciatica of right side Qualified Code(s): M54.41 - Lumbago with sciatica, right side Forms: ED Department Discharge Additional Instructions: The following information is given to patients seen in the emergency department who are being discharged to home. This information is to outline your options for follow-up care. We provide all patients seen in our emergency department with a follow-up referral. The need for follow-up, as well as the timing and circumstances, are variable depending upon the specifics of your emergency department visit. If you don't have a primary care physician on staff, we will provide you with a referral. We always advise you to contact your personal physician following an emergency department visit to inform them of the circumstance of the visit and for follow-up with them and/or the need for any referrals to a consulting specialist. The emergency department will also refer you to a specialist when appropriate. This referral assures that you have the opportunity for followup care with a specialist. All of these measure are taken in an effort to provide you with optimal care, which includes your followup. Under all circumstances we always encourage you to contact your private physician who remains a resource for coordinating your care. When calling for followup care, please make the office aware that this follow-up is from your recent emergency room visit. If for any reason you are refused follow-up, please contact the [facility] emergency department at and asked to speak to the emergency department charge nurse. Monitor blood sugars discussed continue current medications follow-up with private medical doctor tomorrow and return as needed as discussed - My Orders Last 24 Hours: My Active Orders 03/12/19 19:56 EKG Documentation Completion [RC] STAT 03/12/19 20:36 EKG 12 Lead [EKG Documentation Completion] [RC] STAT 03/12/19 21:00 Blood Glucose Check, Bedside [RC] ONETIME - Assessment/Plan Last 24 Hours: My Active Orders 03/12/19 19:56 EKG Documentation Completion [RC] STAT 03/12/19 20:36 EKG 12 Lead [EKG Documentation Completion] [RC] STAT 03/12/19 21:00 Blood Glucose Check, Bedside [RC] ONETIME
--- NOTE | 2019-03-12 20:23 | CR ---
Indication: Lumbar spine steroid injection earlier today, palpitations Technique: Chest 1 view Comparison: None Findings/Impression: Cardiovascular and mediastinum: Heart size and vasculature are normal in caliber and appearance. Mediastinum is within normal limits. Lungs and pleural space: Lungs are clear. No sign of infiltrate or mass. No sign of pleural effusion. No pneumothorax. Bones and soft tissues: No significant findings. Dictated by Melly Alejandro MD @ Mar 12 2019 8:22PM Signed by Dr. Melly Alejandro @ Mar 12 2019 8:22PM
[2019-03-12 20:33] LABS: BLOOD UREA NITROGEN,BUN 18 mg/dL (7.0-18.0); CARBON DIOXIDE,CO2 20.1 mmol/L (21.0-32.0); CHLORIDE,CL 103 mmol/L (98-107); GLUCOSE RANDOM 384 mg/dL (74-106); POTASSIUM,K 4.8 mmol/L (3.5-5.1); SODIUM,NA 137 mmol/L (136-148)
--- NOTE | 2019-03-12 20:54 | PCM.PRNOTE ---
- Free Text/Narrative Note: Anes Note I was called to [facility] Emergency Room to evaluate a complaint of headache in this patient. He had an L3-L4 Interlaminar Epidural Steroid Injection Mar 12 in the pain clinic at [facility]. This evening he reports a 4 out of 10 frontal headache, which does not resolve when lying flat, or worsen upon arising. There is no complaint of pain in the neck or back of head. The patient reports this headache began within minutes of his epidural injection today, and was a 10/10 at that time. The pain was reduced to 4/10 with oral narcotic pain pills which he has by RX. He reports the injection today was to treat a pain in the right anterior thigh which radiated into the rt foot. He reports this pain is not worsened, or improved since his injection. His blood sugar this evening is over 380, which he reports is very high. He takes insulin each mrning and evening and usually has a sugar between 80-130/ Dr Delcid is aware of these values. I have visited with Dr Ramos and Dr Delcid about this patient and his complaints. We have agreed to send this patient home, to take oral analgesics as needed, restrict activity to bed rest, and contact his surgeon tomorrow morning. Time with patient Smith Fitzgerald [employer]
[2019-03-12 21:00] VITALS: BP 144/89; PULSE 84
== END 2019-03-12 21:45 | disposition home or self-care (01) ==
LOC: MW.ED 19:51
DX: M54.41 Lumbago with sciatica, right side (principal); E10.65 Type 1 diabetes mellitus with hyperglycemia; I10 Essential (primary) hypertension; E78.00 Pure hypercholesterolemia, unspecified; E66.9 Obesity, unspecified; Z91.040 Latex allergy status; Z79.82 Long term (current) use of aspirin; Z79.4 Long term (current) use of insulin; Z79.899 Other long term (current) drug therapy
CPT/HCPCS: 36600; 71045; 80053; 81003; 82803; 82962; 84484; 85025; 85610; 93005; 96360; 99285; J7040; 99284; J7030

== ENCOUNTER → 2019-04-09 | Day surgery (SDC) | payer BC ==
--- NOTE | 2019-04-09 16:04 | OR ---
SURGEON: Yumiko Hill D.O. DATE OF PROCEDURE: 04/09/2019 PRIMARY SURGEON: Yumiko Hill D.O. RULES EXAMINER: OR staff present: 1. Naa Pearl RN. 2. RT Mary Jane. 3. Katiuska Aguero RN. WOUND CLASS: I. PROCEDURE PERFOMED: 1. L3-4, L4-5, L5-S1 facet joint injections bilateral. 2. Fluoroscopic guidance for needle placement. 3. Local with oral valium for sedation. SCREENING QUESTIONS: The patient answered "No" to all the following questions: 1. Are you allergic to iodine, Betadine or latex? 2. Do you have a bleeding disorder? 3. Are you on anti-inflammatories or blood thinners? 4. Do you have any current local or systemic infections? DESCRIPTION OF PROCEDURE: The patient had the procedure thoroughly explained including risks, benefits and alternatives. Consent was signed in my clinic indicating understanding and willingness to proceed. The patient presented to [facility] and was escorted to the dressing room to disrobe and change into a hospital gown. Preoperative history and screening were performed by my nurse. Vital signs were taken and stable. The patient reported that Valium 10 milligrams was taken prior to the procedure. The patient was brought back to the procedure room and placed in the prone position on the procedure room table. A pillow was placed under the abdomen in order to flatten the lumbar lordosis. The back was prepped with ChloraPrep and sterilely draped. All personnel in the procedure room were dressed in appropriate attire including surgical scrubs, head and shoe covers. This was to ensure sterility while in the treatment room. During the time fluoroscopy was in use all personnel in the operating room wore lead hand with thyroid collars. Sterile technique was used during the procedure. Then the fluoroscope was positioned to provide a right oblique view for the right L3-4, L4-5 and L5-S1 facet injections. This was begun by anesthetizing the skin and soft tissues. The fluoroscope was positioned and a sterile 22-gauge 3.5 inch needle was placed at the junction of the "ear of the festus dog" at each level. Precise needle placement was confirmed by fluoroscopy in AP and oblique views. Then after negative aspiration, 0.2 cubic centimeters of IsoVue-200 contrast dye was injected through microbore tubing under live fluoroscopy and showed no intravascular flow pattern and adequate flow over the target facet joint. After negative aspiration, 1 cubic centimeters of celestone and 0.5% Ropivacaine was injected without complications. The fluoroscope was then positioned to provide a Left oblique view for the left L3-4, L4-5 and L5-S1 facet joint injections.This was begun by anesthetizing the skin and soft tissues over the right facet joints. Then using fluoroscopic guidance , a sterile 22-gauge 3.5 inch spinal needle was positioned at the "ear of the festus dog" at each level. Precise needle placement was confirmed by fluoroscopy in AP and oblique views. Then after negative aspiration , 0.2 cubic centimeters of IsoVue-200 contrast dye was injected through microbore tubing under live fluoroscopy and showed no intravascular flow pattern and adequate flow over the target facet joints. After negative aspiration, 1 cubic centimeters of Celestone and 0.5% Ropivacaine was injected. No complications were noted. The procedure was well tolerated and vital signs were stable during and after the procedure. The staff escorted the patient to the recovery area. The patient was given both oral and written discharge and followup instructions. The patient will follow up with a pain diary which will be evaluated over this evening doing things that would normally cause pain. We will evaluate the efficacy of the diagnostic lumbar medial branch blocks as the patient will follow up in the clinic the next day. The patient was given both oral and written discharge and followup instructions. The patient voiced understanding including understanding of those signs and symptoms that would require emergency care and knows how to contact the office if there are any questions or concerns in the meantime. PREOPERATIVE PAIN: 11/07. POSTOPERATIVE PAIN: 06/10. FOLLOWUP: Follow up in the Pain Clinic in 3 weeks. HOGLCHR / MARILEEL /[id number] KRISTIAN
== END ==
LOC: MW.SDS 10:50
PROVIDERS: ATTEND Anesthesiology
DX: M51.16 Intervertebral disc disorders with radiculopathy, lumbar region (principal); M47.26 Other spondylosis with radiculopathy, lumbar region; M48.062 Spinal stenosis, lumbar region with neurogenic claudication; M51.37 Other intervertebral disc degeneration, lumbosacral region; M47.817 Spondylosis without myelopathy or radiculopathy, lumbosacral region; E11.9 Type 2 diabetes mellitus without complications; Z91.040 Latex allergy status; Z79.82 Long term (current) use of aspirin; Z79.4 Long term (current) use of insulin; Z79.899 Other long term (current) drug therapy
CPT/HCPCS: 64493; 64494; 64495; J0702; 64490-50

== ENCOUNTER 2019-06-11 07:38 | Observation (INO) | payer BC ==
--- NOTE | 2019-06-11 07:51 | EDM.PDOC ---
ED HPI GENERAL MEDICAL PROBLEM - General Stated Complaint: CHEST AND LT ARM PAIN Time Seen by Provider: 06/11/19 07:51 Source of Information: Reports: Patient History Limitations: Reports: No Limitations - History of Present Illness INITIAL COMMENTS - FREE TEXT/NARRATIVE: Patient is a 53-year-old male who is complaining of having left upper extremity and shoulder numbness and pain that is been ongoing for the past 4 days. Patient feels this pain is worse with movement and with ambulation. He states at times he does feel short of breath though when he walked from his vehicle to the emergency room today he was not short of breath. Patient was nauseous last night but has been nauseous prior to that and denies bloody or tarry stools or any swelling to his ankles or calfs. [place] he was diaphoretic last night. he denies any chest pain except after his arrival to the department he had a little lateral left-sided chest pain that is not currently present. He denies having previously similar symptoms. Patient has multiple risk factors including smoking cigarettes high blood pressure high cholesterol diabetes and a positive family history with his mother having a myocardial infarction in her late 50s. Patient denies any previous stress tests or work-ups for coronary artery disease. Patient is on chronic pain narcotic patch and is not allowed to take other narcotics while he is being treated in this manner. Duration: Day(s): (4), Getting Worse Quality: Reports: Ache, Dull. Denies: Pressure Severity: Moderate Improves with: Reports: None Worsens with: Reports: Movement Associated Symptoms: Reports: Chest Pain, Shortness of Breath Chest Pain Score (Numeric/FACES): 8 - Related Data Allergies Allergy/AdvReac Type Severity Reaction Status Date / Time latex Allergy Rash Verified 06/11/19 07:54 Home Meds: Home Meds Aspirin [Ifeoma Chewable] 81 mg PO DAILY 08/22/13 [History] Insulin Lispro Prot/Lispro [HumaLOG Mix 75-25] 50 unit .XX BID 08/22/13 [History ] atorvaSTATin [Lipitor] 40 mg PO BEDTIME 08/22/13 [History] lisinopriL [Prinivil] 10 mg PO DAILY 08/22/13 [History] metFORMIN HCl [Metformin HCl ER] 1,000 mg PO BID 08/22/13 [History] Ramipril [Altace] 1.25 mg PO DAILY 10/05/15 [History] Acetaminophen/HYDROcodone [[place] 325-5 MG] 1 dose PO Q4H #20 tablet 03/05/19 [Rx ] methylPREDNISolone [Medrol] 1 dose PO DAILY 6 Days #1 dospk 03/05/19 [Rx] Past Medical History HEENT History: Reports: None Cardiovascular History: Reports: High Cholesterol, Hypertension Respiratory History: Reports: None Gastrointestinal History: Reports: None Genitourinary History: Reports: Renal Calculus Musculoskeletal History: Reports: None Neurological History: Reports: None Psychiatric History: Reports: None Endocrine/Metabolic History: Reports: Diabetes, Type I, Obesity/BMI 30+ Insulin Pump Model and Automatic Pattern Edger: None Hematologic History: Reports: None Immunologic History: Reports: None Oncologic (Cancer) History: Reports: None Dermatologic History: Reports: None - Infectious Disease History Infectious Disease History: Reports: None - Past Surgical History Head Surgeries/Procedures: Reports: None HEENT Surgical History: Reports: None Cardiovascular Surgical History: Reports: None Respiratory Surgical History: Reports: None GI Surgical History: Reports: Cholecystectomy Male Surgical History: Reports: None Endocrine Surgical History: Reports: None Neurological Surgical History: Reports: None Musculoskeletal Surgical History: Reports: Shoulder Surgery Dermatological Surgical History: Reports: None Social & Family History - Family History Family Medical History: Noncontributory - Caffeine Use Caffeine Use: Reports: Coffee, Soda ED ROS GENERAL - Review of Systems Review Of Systems: Comprehensive ROS is negative, except as noted in HPI. ED EXAM, GENERAL - Physical Exam Exam: See Below Exam Limited By: No Limitations General Appearance: Alert Head: Atraumatic, Normocephalic Neck: Normal Inspection, Supple, Non-Tender Respiratory/Chest: No Respiratory Distress, Lungs Clear, Normal Breath Sounds, Chest Non-Tender Cardiovascular: Regular Rate, Rhythm, No Edema, No JVD GI/Abdominal: Normal Bowel Sounds, Soft, Non-Tender, No Organomegaly Back Exam: Normal Inspection, Muscle Spasm, Other (Positive for left rhomboid trapezius muscle spasm which reproduces patient's shoulder and arm numbness and pain symptoms.) Neurological: Alert, Oriented Psychiatric: Flat Affect Skin Exam: Warm, Dry Lymphatic: No Adenopathy Course - Vital Signs Text/Narrative:: Patient's initial lab work shows no acute disease. Chest x-ray and EKG are within normal limits. Due to patient's risk factors for coronary artery disease and his symptom of some shortness of breath with exertion I feel he needs to be admitted to the hospital at this time for complete rule out and to expedite him getting a stress test. Patient is aware and agreeable with this plan. Dr. Orozco is aware and agreeable with this plan. Last Recorded V/S: Last Vital Signs Temp 36.2 C 06/11/19 07:52 Pulse 121 H 06/11/19 07:52 Resp 20 06/11/19 07:52 BP 166/94 H 06/11/19 07:52 Pulse Ox 94 L 06/11/19 07:52 - Orders/Labs/Meds Orders: Active Orders 24 hr Category Date Time Status Admission Status [Patient Status] [ADT] Stat ADT 06/11/19 09:40 Active EKG 12 Lead [EKG Documentation Completion] [RC] STAT Care 06/11/19 08:09 Active Sodium Chloride 0.9% [Saline Flush] Med 06/11/19 07:58 Active 10 ml FLUSH ASDIRECTED PRN Sodium Chloride 0.9% [Saline Flush] Med 06/11/19 07:58 Active 2.5 ml FLUSH ASDIRECTED PRN Saline Lock Insert [OM.PC] Stat Oth 06/11/19 07:58 Ordered Medication Orders Sodium Chloride (Saline Flush) 10 ml FLUSH ASDIRECTED PRN PRN Reason: Keep Vein Open Last Admin: 06/11/19 08:06 Dose: 10 ml Sodium Chloride (Saline Flush) 2.5 ml FLUSH ASDIRECTED PRN PRN Reason: Keep Vein Open Last Admin: 06/11/19 08:06 Dose: 2.5 ml Labs: Laboratory Tests 06/11/19 06/11/19 Range/Units 07:48 07:48 WBC 13.24 H (4.0-11.0) K/uL RBC 4.88 (4.50-5.90) M/uL Hgb 16.2 (13.0-17.0) g/dL Hct 48.1 (38.0-50.0) % MCV 98.6 H (80.0-98.0) fL MCH 33.2 H (27.0-32.0) pg MCHC 33.7 (31.0-37.0) g/dL RDW Std Deviation 50.4 (28.0-62.0) fl RDW Coeff of Benny 14 (11.0-15.0) % Plt Count 211 (150-400) K/uL MPV 11.60 (7.40-12.00) fL Neut % (Auto) 71.0 (48.0-80.0) % Lymph % (Auto) 19.6 (16.0-40.0) % [place] % (Auto) 8.8 (0.0-15.0) % Eos % (Auto) 0.4 (0.0-7.0) % Baso % (Auto) 0.2 (0.0-1.5) % Neut # (Auto) 9.4 H (1.4-5.7) K/uL Lymph # (Auto) 2.6 H (0.6-2.4) K/uL [place] # (Auto) 1.2 H (0.0-0.8) K/uL Eos # (Auto) 0.1 (0.0-0.7) K/uL Baso # (Auto) 0.0 (0.0-0.1) K/uL Nucleated RBC % 0.0 /100WBC Nucleated RBCs # 0 K/uL Sodium 142 (136-148) mmol/L Potassium 4.8 (3.5-5.1) mmol/L Chloride 106 (98-107) mmol/L Carbon Dioxide 22.5 (21.0-32.0) mmol/L BUN 19 H (7.0-18.0) mg/dL Creatinine 1.0 (0.8-1.3) mg/dL Est Cr Clr Drug Dosing 89.94 mL/min Estimated GFR (MDRD) > 60.0 ml/min Glucose 228 H (74-106) mg/dL Calcium 9.3 (8.5-10.1) mg/dL Total Bilirubin 0.3 (0.2-1.0) mg/dL AST 12 L (15-37) IU/L ALT 29 (14-63) IU/L Alkaline Phosphatase 64 (46-116) U/L Troponin I < 0.050 (0.000-0.056) ng/mL Total Protein 7.8 (6.4-8.2) g/dL Albumin 3.9 (3.4-5.0) g/dL Globulin 3.9 (2.6-4.0) g/dL Albumin/Globulin Ratio 1.0 (0.9-1.6) Meds: Medications Generic Name Dose Route Start Last Admin Trade Name Freq PRN Reason Stop Dose Admin Sodium Chloride 10 ml 06/11/19 07:58 06/11/19 08:06 Saline Flush FLUSH 10 ml ASDIRECTED PRN Administration Keep Vein Open Sodium Chloride 2.5 ml 06/11/19 07:58 06/11/19 08:06 Saline Flush FLUSH 2.5 ml ASDIRECTED PRN Administration Keep Vein Open Discontinued Medications Generic Name Dose Route Start Last Admin Trade Name Nateq PRN Reason Stop Dose Admin Aspirin 324 mg 06/11/19 07:58 06/11/19 08:05 Aspirin PO 06/11/19 07:59 243 mg ONETIME ONE Administration Ketorolac Tromethamine 30 mg 06/11/19 07:58 06/11/19 08:06 Toradol IVPUSH 06/11/19 07:59 30 mg ONETIME ONE Administration Lidocaine 700 mg 06/11/19 07:59 06/11/19 08:06 Lidoderm 5% TOP 06/11/19 08:00 700 mg ONETIME ONE Administration Departure - Departure Time of Disposition: 09:45 Disposition: Admitted As Inpatient 65 Condition: Good Clinical Impression: Acute coronary syndrome Referrals: PCP,None [Primary Care Provider] - Sepsis Event Note - Focused Exam Vital Signs: Vital Signs Temp Pulse Resp BP Pulse Ox 06/11/19 07:52 36.2 C 121 H 20 166/94 H 94 L Date Exam was Performed: 06/11/19 Time Exam was Performed: 09:44 - My Orders Last 24 Hours: My Active Orders 06/11/19 07:58 Sodium Chloride 0.9% [Saline Flush] 10 ml FLUSH ASDIRECTED PRN Sodium Chloride 0.9% [Saline Flush] 2.5 ml FLUSH ASDIRECTED PRN Saline Lock Insert [OM.PC] Stat 06/11/19 08:09 EKG 12 Lead [EKG Documentation Completion] [RC] STAT 06/11/19 09:40 Admission Status [Patient Status] [ADT] Stat - Assessment/Plan Last 24 Hours: My Active Orders 06/11/19 07:58 Sodium Chloride 0.9% [Saline Flush] 10 ml FLUSH ASDIRECTED PRN Sodium Chloride 0.9% [Saline Flush] 2.5 ml FLUSH ASDIRECTED PRN Saline Lock Insert [OM.PC] Stat 06/11/19 08:09 EKG 12 Lead [EKG Documentation Completion] [RC] STAT 06/11/19 09:40 Admission Status [Patient Status] [ADT] Stat
[2019-06-11] MEDS ORDERED: Ketorolac 30 MG/ML SDV IVPUSH ONE ×2 (07:58→13:22)
[2019-06-11] MEDS ORDERED: Aspirin 81 MG Tab.Chew PO ONE (07:58)
[2019-06-11] MEDS ORDERED: Sodium Chloride 0.9% 10 ML Syringe FLUSH PRN (07:58)
[2019-06-11] MEDS ORDERED: Lidocaine 5% 700 MG Patch TOP ONE (07:59)
[2019-06-11] MEDS: Sodium Chloride 0.9% 2.5 ML Syringe FLUSH PRN ×2 (08:06→13:54)
[2019-06-11 08:29] LABS: BLOOD UREA NITROGEN,BUN 19 mg/dL (7.0-18.0); CARBON DIOXIDE,CO2 22.5 mmol/L (21.0-32.0); CHLORIDE,CL 106 mmol/L (98-107); GLUCOSE RANDOM 228 mg/dL (74-106); POTASSIUM,K 4.8 mmol/L (3.5-5.1); SODIUM,NA 142 mmol/L (136-148)
--- NOTE | 2019-06-11 09:02 | CR ---
Chest: AP view of the chest was obtained. Comparison: Prior chest x-ray of 03/12/19. Heart size and mediastinum are within normal limits for AP technique. Slight scarring is noted within the left base. Lungs otherwise are is clear. No acute parenchymal change is seen. Bony structures are grossly intact. Impression: 1. Nothing acute is appreciated on AP chest x-ray. Diagnostic code #2 This report was dictated in [place] Standard Time
[2019-06-11] MEDS ORDERED: Acetaminophen 325 MG Tab PO PRN (10:35)
[2019-06-11] MEDS ORDERED: Ondansetron 4 MG Tab.DIS PO PRN (10:35)
[2019-06-11 11:59] LABS: HEMOGLOBIN A1C 7.5 % (4.5-6.2)
--- NOTE | 2019-06-11 12:03 | PCM.HP.2 ---
H&P History of Present Illness - General Date of Service: 06/11/19 Admit Problem/Dx: Admission Diagnosis/Problem Admission Diagnosis/Problem Chest pain - History of Present Illness Initial Comments - Free Text/Narative: This 53 year old male with pmh of HTN, DM type 2, controlled, tobacco abuse, dyslipidemia, and chronic back pain presented to the ED today with complaints of L shoulder and chest pain. he reports this pain started Monday evening and Monday morning. He reports he was moving 12 or so groupings of lockers on Monday, and since then his back and shoulder have been hurting. He reports this pain is sharp in nature to his upper trapezius and L shoulder. Hurts worse with movement of shoulder. Woke up with some diaphoresis yesterday and increased pain. Denied shortness of breath or nausea. No recent URI, fevers or chills. Reports BP and glucose at home has been well controlled. Denies any work up ith cardiology or stress test in the past. Never had chest pain prior. Patient is requesting no narcotics as he is on Naltrexone for chronic back pain. He reports his mother had MT in her 50s. He reports slowly quitting tobacco use and is down to 5 cigarettes daily. Rare, social alcohol use and no recreational drug use. He follows closely with his PCP, Dr Abdul. had labwork done in March and reports DM and HLD were controlled well. Follows with Dr Tijerina for pain management. In the ED mild elevation in WBC, 13,240. Platelets 211. BUN 19 Cr 1.0. Glucose 228, A1c 7.5 and troponin negative. EKG SR with no ST elevation or T wave inversions. HR ST initially with elevated BP, pain controlled with Toradol and ice. VS inmproved to WNL, HR 65 and BP 120/80s. CXR negative. ED recommended admission for atypical chest pain rule out ASC. PCP, Dr Abdul. Chest Pain Score (Numeric/FACES): 8 - Related Data Allergies/Adverse Reactions: Allergies Allergy/AdvReac Type Severity Reaction Status Date / Time latex Allergy Rash Verified 06/11/19 12:30 Home Medications: Home Meds Aspirin [Ifeoma Chewable Aspirin] 81 mg PO DAILY 08/22/13 [History] atorvaSTATin [Lipitor] 40 mg PO BEDTIME 08/22/13 [History] Ramipril [Altace] 10 mg PO DAILY 10/05/15 [History] Cyclobenzaprine [Flexeril] 10 mg PO BID PRN #10 tab 06/11/19 [Rx] Famotidine 20 mg PO BID 06/11/19 [History] Insuln Asp Prot/Insulin Aspart [NovoLOG Mix 70-30] 50 unit SUBCUT BID 06/11/19 [ History] Naltrexone 3 mg PO DAILY 06/11/19 [History] Pregabalin [Lyrica] 75 mg PO BID 06/11/19 [History] metFORMIN HCl [Metformin HCl] 1,000 mg PO BIDMEALS 06/11/19 [History] Past Medical History HEENT History: Reports: None Cardiovascular History: Reports: High Cholesterol, Hypertension Respiratory History: Reports: None. Denies: Asthma, COPD Gastrointestinal History: Reports: GERD Genitourinary History: Reports: Renal Calculus Musculoskeletal History: Reports: Back Pain, Chronic Neurological History: Reports: None Psychiatric History: Reports: None Endocrine/Metabolic History: Reports: Diabetes, Type I, Obesity/BMI 30+ Insulin Pump Model and Flex O Writer Operator: None Hematologic History: Reports: None Immunologic History: Reports: None Oncologic (Cancer) History: Reports: None Dermatologic History: Reports: None - Infectious Disease History Infectious Disease History: Reports: None - Past Surgical History Head Surgeries/Procedures: Reports: None HEENT Surgical History: Reports: None Cardiovascular Surgical History: Reports: None Respiratory Surgical History: Reports: None GI Surgical History: Reports: Cholecystectomy Male Surgical History: Reports: None Endocrine Surgical History: Reports: None Neurological Surgical History: Reports: None Musculoskeletal Surgical History: Reports: Shoulder Surgery Dermatological Surgical History: Reports: None Social & Family History - Family History Family Medical History: Noncontributory - Tobacco Use Smoking Status *Q: Current Some Day Smoker Years of Tobacco use: 20 Packs/Tins Daily: 0.3 - Caffeine Use Caffeine Use: Reports: Coffee, Soda - Alcohol Use Days Per Week of Alcohol Use: 1 Number of Drinks Per Day: 0 Total Drinks Per Week: 0 Date of Last Drink: 05/29/18 Alcohol Use Frequency: Rarely, Socially - Recreational Drug Use Recreational Drug Use: No - Living Situation & Occupation Living situation: Reports: Occupation: Employed H&P Review of Systems - Review of Systems: Review Of Systems: See Below General: Reports: No Symptoms. Denies: Fever, Chills, Malaise, Weakness HEENT: Reports: No Symptoms. Denies: Headaches, Sinus Congestion, Sore Throat Pulmonary: Reports: No Symptoms. Denies: Shortness of Breath Cardiovascular: Reports: Chest Pain (L chest and L shoulder) Gastrointestinal: Reports: No Symptoms. Denies: Abdominal Pain, Black Stool, Bloody Stool, Nausea, Vomiting Genitourinary: Reports: No Symptoms. Denies: Dysuria, Frequency, Burning Musculoskeletal: Reports: Shoulder Pain (L shoulder, worsens with movement) Psychiatric: Reports: No Symptoms Neurological: Reports: No Symptoms Hematologic/Lymphatic: Reports: No Symptoms Immunologic: Reports: No Symptoms Exam - Exam Exam: See Below - Vital Signs Vital Signs: Last Vital Signs Temp 97.2 F 06/11/19 07:52 Pulse 89 06/11/19 09:43 Resp 18 06/11/19 09:43 BP 125/73 06/11/19 09:43 Pulse Ox 97 06/11/19 09:43 Weight: 108.9 kg - Exam General: Alert, Oriented, Cooperative HEENT: Conjunctiva Clear, Mucosa Moist & Gideon, Posterior Pharynx Clear Neck: Supple Lungs: Clear to Auscultation, Normal Respiratory Effort Cardiovascular: Regular Rate, Regular Rhythm GI/Abdominal Exam: Normal Bowel Sounds, Soft, Non-Tender Back Exam: Normal Inspection. No: Full Range of Motion (declines wanting to sit forwards, reports pain is increased since Monday. No neurological deficits. No incontinents, fecal or urine) Extremities: Normal Inspection, Limited Range of Motion (L shoulder, unable to raise above head without pain. Tenderness noted to palpation of chest wall. Reproducing pain.). No: Normal Range of Motion Skin: Warm, Dry, Intact Neuro Extensive - Mental Status: Alert, Oriented x3 Neuro Extensive - Motor, Sensory, Reflexes: CN II-XII Intact, Normal Gait, Normal Reflexes - Patient Data Lab Results Last 24 hrs: Laboratory Results - last 24 hr 06/11/19 06/11/19 06/11/19 Range/Units 07:48 07:48 07:48 WBC 13.24 H (4.0-11.0) K/uL RBC 4.88 (4.50-5.90) M/uL Hgb 16.2 (13.0-17.0) g/dL Hct 48.1 (38.0-50.0) % MCV 98.6 H (80.0-98.0) fL MCH 33.2 H (27.0-32.0) pg MCHC 33.7 (31.0-37.0) g/dL RDW Std Deviation 50.4 (28.0-62.0) fl RDW Coeff of Benny 14 (11.0-15.0) % Plt Count 211 (150-400) K/uL MPV 11.60 (7.40-12.00) fL Neut % (Auto) 71.0 (48.0-80.0) % Lymph % (Auto) 19.6 (16.0-40.0) % Gulf % (Auto) 8.8 (0.0-15.0) % Eos % (Auto) 0.4 (0.0-7.0) % Baso % (Auto) 0.2 (0.0-1.5) % Neut # (Auto) 9.4 H (1.4-5.7) K/uL Lymph # (Auto) 2.6 H (0.6-2.4) K/uL Gulf # (Auto) 1.2 H (0.0-0.8) K/uL Eos # (Auto) 0.1 (0.0-0.7) K/uL Baso # (Auto) 0.0 (0.0-0.1) K/uL Nucleated RBC % 0.0 /100WBC Nucleated RBCs # 0 K/uL Sodium 142 (136-148) mmol/L Potassium 4.8 (3.5-5.1) mmol/L Chloride 106 (98-107) mmol/L Carbon Dioxide 22.5 (21.0-32.0) mmol/L BUN 19 H (7.0-18.0) mg/dL Creatinine 1.0 (0.8-1.3) mg/dL Est Cr Clr Drug Dosing 89.94 mL/min Estimated GFR (MDRD) > 60.0 ml/min Glucose 228 H (74-106) mg/dL Calcium 9.3 (8.5-10.1) mg/dL Total Bilirubin 0.3 (0.2-1.0) mg/dL AST 12 L (15-37) IU/L ALT 29 (14-63) IU/L Alkaline Phosphatase 64 (46-116) U/L Troponin I < 0.050 (0.000-0.056) ng/mL Total Protein 7.8 (6.4-8.2) g/dL Albumin 3.9 (3.4-5.0) g/dL Globulin 3.9 (2.6-4.0) g/dL Albumin/Globulin Ratio 1.0 (0.9-1.6) Triglycerides 142 (0-200) mg/dL Cholesterol 174 (50-200) mg/dL LDL Cholesterol, Calc 87 (60-180) mg/dL VLDL Cholesterol 28 (5-55) mg/dL HDL Cholesterol 59 (40-60) mg/dL Cholesterol/HDL Ratio 2.9 L (3.3-6.0) Result Diagrams: 06/11/19 07:48 06/11/19 07:48 EKG INTERPRETATION EKG Date: 06/11/19 Rhythm: NSR Rate (Beats/Min): 80 Myra: LAD-Left Myra Deviation QRS: Normal ST-T: Normal QT: Normal Sepsis Event Note - Evaluation Sepsis Screening Result: No Definite Risk - Focused Exam Vital Signs: Vital Signs Temp Pulse Resp BP Pulse Ox 06/11/19 09:43 89 18 125/73 97 06/11/19 09:13 71 20 118/47 L 94 L 06/11/19 08:43 77 18 130/73 94 L 06/11/19 07:52 97.2 F 121 H 20 166/94 H 94 L Date Exam was Performed: 06/11/19 Time Exam was Performed: 15:34 - Problem List (1) Atypical chest pain SNOMED Code(s): 888211410 ICD Code: R07.89 - OTHER CHEST PAIN Status: Acute Current Visit: Yes (2) HLD (hyperlipidemia) SNOMED Code(s): 87243516 ICD Code: E78.5 - HYPERLIPIDEMIA, UNSPECIFIED Status: Chronic Current Visit: Yes (3) HTN (hypertension) SNOMED Code(s): 72406980 ICD Code: I10 - ESSENTIAL (PRIMARY) HYPERTENSION Status: Chronic Current Visit: Yes (4) DM type 2 (diabetes mellitus, type 2) SNOMED Code(s): 60993889 ICD Code: E11.9 - TYPE 2 DIABETES MELLITUS WITHOUT COMPLICATIONS Status: Chronic Current Visit: Yes (5) Tobacco dependence SNOMED Code(s): 78378725 ICD Code: F17.200 - NICOTINE DEPENDENCE, UNSPECIFIED, UNCOMPLICATED Status : Chronic Current Visit: Yes (6) Chronic back pain SNOMED Code(s): 737978213 ICD Code: M54.9 - DORSALGIA, UNSPECIFIED; G89.29 - OTHER CHRONIC PAIN Status: Chronic Current Visit: No Qualifiers: Back pain location: low back pain Back pain laterality: bilateral Sciatica presence: without sciatica Qualified Code(s): M54.5 - Low back pain; G89.29 - Other chronic pain Problem List Initiated/Reviewed/Updated: Yes Orders Last 24hrs: Active Orders 24 hr Category Date Time Status Admission Status [Patient Status] [ADT] Stat ADT 06/11/19 09:40 Active Blood Glucose Check, Bedside [RC] TIDMEALS Care 06/11/19 10:36 Active EKG 12 Lead [EKG Documentation Completion] [RC] STAT Care 06/11/19 08:09 Active Intake and Output [RC] QSHIFT Care 06/11/19 10:35 Active Oxygen Therapy [RC] PRN Care 06/11/19 10:35 Active Telemetry Monitoring [Cardiac Monitoring] [RC] . Care 06/11/19 10:36 Active DIRECTED Up ad Hazel [RC] ASDIRECTED Care 06/11/19 10:35 Active VTE/DVT Education [RC] PER UNIT ROUTINE Care 06/11/19 10:35 Active Vital Signs [RC] Q4H Care 06/11/19 10:35 Active Heart Healthy Diet [DIET] Diet 06/11/19 Lunch Active GLYCOSYLATED HEMOGLOBIN,HGBA1C [CHEM] Routine Lab 06/11/19 07:48 Received TROPONIN I [CHEM] Q3H Lab 06/11/19 13:45 Ordered TROPONIN I [CHEM] Q3H Lab 06/11/19 16:45 Ordered Acetaminophen [Tylenol] Med 06/11/19 10:35 Active 650 mg PO Q4H PRN Ondansetron [Zofran ODT] Med 06/11/19 10:35 Active 4 mg PO Q4H PRN Sodium Chloride 0.9% [Saline Flush] Med 06/11/19 07:58 Active 10 ml FLUSH ASDIRECTED PRN Sodium Chloride 0.9% [Saline Flush] Med 06/11/19 07:58 Active 2.5 ml FLUSH ASDIRECTED PRN Saline Lock Insert [OM.PC] Stat Oth 06/11/19 07:58 Ordered Resuscitation Status Routine Resus Stat 06/11/19 10:35 Ordered Medication Orders Acetaminophen (Tylenol) 650 mg PO Q4H PRN PRN Reason: Pain (mild 1-3) Ondansetron HCl (Zofran Odt) 4 mg PO Q4H PRN PRN Reason: nausea, able to take PO Sodium Chloride (Saline Flush) 10 ml FLUSH ASDIRECTED PRN PRN Reason: Keep Vein Open Last Admin: 06/11/19 08:06 Dose: 10 ml Sodium Chloride (Saline Flush) 2.5 ml FLUSH ASDIRECTED PRN PRN Reason: Keep Vein Open Last Admin: 06/11/19 08:06 Dose: 2.5 ml Assessment/Plan Comment:: This 53 year old male admitted with atypical chest pain rule out ACS 1. Atypical chest pain rule out ACS; - Trend troponins Q3h x 3 total, so far 2 negative. - Monitor on Telemetry - Patient requesting DC home after troponins as he does not feel comfortable staying overnight as back pain will worsen in our beds - Arrange outpatient stress test and follow up with PCP. - DM, HLD and HTN well controlled on current regimen - Counseled 5 minutes on tobacco use, he is currently in the process of quitting by slowly cutting back. 2. L shoulder pain: - Obtain Xray, chest pain is likely MSK related due to overuse on Monday. Will give another dose of Toradol now. - Ice and heat PRN. - Consider short burst of Prednisone. Discharge Plan: All troponins negative. No repeat chest pain. Pain is all related to back pain and and L shoulder pain, MSK in nature. ACS ruled out. He is asking for discharge as he knows his back pain will not be controlled here with our bed. He is up ambulating to help relieve back pain now, reports some spasms. I will send 10 tabs of Flexeril for outpatient use along with continuing Naltrexone and Tylenol and Motrin. He is agreeable with this and eager for discharge. He will follow up with PCP in 1-2 weeks and will have stress test arranged as outpatient as well. He is to return to ED or clinic if concerns should arise. - Mortality Measure Prognosis:: Good
[2019-06-11 12:18] VITALS: BP 124/72; PULSE 65
--- NOTE | 2019-06-11 14:04 | CR ---
Left shoulder: 3 views left shoulder were obtained. Glenohumeral joint is poorly seen. Acromioclavicular joint is normal. No discrete fracture or other abnormality is noted. Impression: 1. Poorly seen glenohumeral joint. This is most likely projectional although I believe an axillary view should be obtained to completely confirm normal alignment. 2. No additional abnormality is appreciated. Diagnostic code #3 Study was dictated in [place] Standard Time
[2019-06-11] MEDS ORDERED: metFORMIN 500 MG Tab PO SCH (17:00)
[2019-06-11] MEDS ORDERED: Insuln Aspart Prot/Insulin Aspart 100 Units/ML 3 ML FlexPen SUBCUT SCH (21:00)
[2019-06-11] MEDS ORDERED: Pregabalin 75 MG Cap PO SCH (21:00)
[2019-06-11] MEDS ORDERED: Famotidine 20 MG Tab PO SCH (21:00)
[2019-06-11] MEDS ORDERED: atorvaSTATin 40 MG Tab PO SCH (21:00)
[2019-06-12] MEDS ORDERED: Aspirin 81 MG Tab.Chew PO SCH (09:00)
== END 2019-06-11 15:55 | disposition home or self-care (01) ==
LOC: MW.ED 07:38 → MW.MS 09:56
PROVIDERS: ADMIT Student in an Organized Health Care Education/Training Program; ATTEND Student in an Organized Health Care Education/Training Program
DX: R07.89 Other chest pain (principal); M25.512 Pain in left shoulder; G89.29 Other chronic pain; M54.5 Low back pain; I10 Essential (primary) hypertension; E11.9 Type 2 diabetes mellitus without complications; E78.5 Hyperlipidemia, unspecified; E78.00 Pure hypercholesterolemia, unspecified; K21.9 Gastro-esophageal reflux disease without esophagitis; F17.210 Nicotine dependence, cigarettes, uncomplicated; Z79.82 Long term (current) use of aspirin; Z79.4 Long term (current) use of insulin; Z79.899 Other long term (current) drug therapy; Z91.040 Latex allergy status
CPT/HCPCS: 36415; 71045; 73030; 80053; 80061; 83036; 84484; 85025; 93005; 96374; 96376; 99285; A9270; G0378; J1885; 99284; J1815-GY

== ENCOUNTER 2019-11-18 23:04 | Emergency (ER) | payer BC ==
--- NOTE | 2019-11-19 00:39 | EDM.PDOC ---
ED HPI GENERAL MEDICAL PROBLEM - General Chief Complaint: Genitourinary Problem Stated Complaint: TROUBLE URINATING Time Seen by Provider: 11/18/19 23:48 - History of Present Illness INITIAL COMMENTS - FREE TEXT/NARRATIVE: History of present illness: Patient presents with urinary retention he has had a similar episode in the past he denies any dysuria he was just unable to completely empty his bladder became urgent he denies any fever chills or other symptoms no other new medications no antihistamines nothing seems to make it better or worse. Review of systems: As per history of present illness and below otherwise all systems reviewed and negative. Past medical history: As per history of present illness and as reviewed below otherwise noncontributory. Surgical history: As per history of present illness and as reviewed below otherwise noncontributory. Social history: No reported history of drug or alcohol abuse. Family history: As per history of present illness and as reviewed below otherwise noncontributo ry. Physical exam: HEENT: Atraumatic, normocephalic, pupils reactive, negative for conjunctival pallor or scleral icterus, mucous membranes moist, throat clear, neck supple, nontender, trachea midline. Lungs: Clear to auscultation, breath sounds equal bilaterally, chest nontender. Heart: S1S2, regular, negative for clicks, rubs, or JVD. Abdomen: Soft, distended bladder, nontender. Negative for masses or hepatosplenomegaly. Negative for costovertebral tenderness. Pelvis: Stable nontender. Genitourinary: Deferred. Rectal: Deferred. Extremities: Atraumatic, negative for cords or calf pain. Neurovascular unremarkable. Neuro: Awake, alert, oriented. Cranial nerves II through XII unremarkable. Cerebellum unremarkable. Motor and sensory unremarkable throughout. Exam nonfocal. Diagnostics: [] Therapeutics: [] Impression: [] Plan: Lloyd discharge home tamsulosin [facility] Specialty [facility] - Urology [address] [place] [id number] [] Definitive disposition and diagnosis as appropriate pending reevaluation and review of above. Bilateral Lower Abdomen Pain Score (Numeric/FACES): 8 - Related Data Allergies Allergy/AdvReac Type Severity Reaction Status Date / Time latex Allergy Rash Verified 06/11/19 12:30 Home Meds: Home Meds Aspirin [Ifeoma Chewable Aspirin] 81 mg PO DAILY 08/22/13 [History] atorvaSTATin [Lipitor] 40 mg PO BEDTIME 08/22/13 [History] Insuln Asp Prot/Insulin Aspart [NovoLOG Mix 70-30] 50 unit SUBCUT BID 06/11/19 [History] metFORMIN HCl [Metformin HCl] 1,000 mg PO BIDMEALS 06/11/19 [History] Tamsulosin [Flomax] 0.4 mg PO DAILY 10 Days #10 cap.er 11/19/19 [Rx] Past Medical History HEENT History: Reports: None Cardiovascular History: Reports: High Cholesterol, Hypertension Respiratory History: Reports: None Gastrointestinal History: Reports: GERD Genitourinary History: Reports: Renal Calculus Musculoskeletal History: Reports: Back Pain, Chronic Neurological History: Reports: None Psychiatric History: Reports: None Endocrine/Metabolic History: Reports: Diabetes, Type I, Obesity/BMI 30+ Insulin Pump Model and Rn Sexual Assault: None Hematologic History: Reports: None Immunologic History: Reports: None Oncologic (Cancer) History: Reports: None Dermatologic History: Reports: None - Infectious Disease History Infectious Disease History: Reports: None - Past Surgical History Head Surgeries/Procedures: Reports: None HEENT Surgical History: Reports: None Cardiovascular Surgical History: Reports: None Respiratory Surgical History: Reports: None GI Surgical History: Reports: Cholecystectomy Male Surgical History: Reports: None Endocrine Surgical History: Reports: None Neurological Surgical History: Reports: None Musculoskeletal Surgical History: Reports: Shoulder Surgery Dermatological Surgical History: Reports: None Social & Family History - Family History Family Medical History: Noncontributory HEENT: Reports: Cataract Cardiac: Reports: Hypertension, NM Other Cardiac Family History: pt states that his mother had open heart surgery due to an NM Dermatologic: Reports: Psoriasis Other Dermatologic Family History: pt states that his brother has psoriasis - Tobacco Use Smoking Status *Q: Current Every Day Smoker Years of Tobacco use: 30 Packs/Tins Daily: 0.5 Second Hand Smoke Exposure: No - Caffeine Use Caffeine Use: Reports: Coffee - Recreational Drug Use Recreational Drug Use: Yes - Living Situation & Occupation Living situation: Reports: Occupation: Employed ED ROS GENERAL - Review of Systems Review Of Systems: See Below ED EXAM, GENERAL - Physical Exam Exam: See Below Course - Vital Signs Text/Narrative:: Lloyd placed by nursing staff relieved his pain he does not seem to have a urinary tract infection he will be discharged home follow-up with urology Last Recorded V/S: Last Vital Signs Temp 36.1 C 11/18/19 23:40 Pulse 120 H 11/18/19 23:40 Resp 20 11/18/19 23:40 BP 157/98 H 11/18/19 23:40 Pulse Ox 97 11/18/19 23:40 - Orders/Labs/Meds Labs: Laboratory Tests 11/18/19 Range/Units 23:50 Urine Color YELLOW Urine Appearance CLEAR Urine pH 6.0 (5.0-8.0) Ur Specific [place] 1.010 (1.001-1.035) Urine Protein NEGATIVE (NEGATIVE) mg/dL Urine Glucose (UA) 100 H (NEGATIVE) mg/dL Urine Ketones NEGATIVE (NEGATIVE) mg/dL Urine Occult Blood SMALL H (NEGATIVE) Urine Nitrite NEGATIVE (NEGATIVE) Urine Bilirubin NEGATIVE (NEGATIVE) Urine Urobilinogen 0.2 (<2.0) EU/dL Ur Leukocyte Esterase NEGATIVE (NEGATIVE) Urine RBC NONE SEEN (0-2/HPF) Urine WBC 0-1 (0-5/HPF) Ur Epithelial Cells RARE (NONE-FEW) Ur Renal Epithelial Cell OCCASIONAL Urine Bacteria RARE (NEGATIVE) Urine Mucus LIGHT (NONE-MOD) Departure - Departure Time of Disposition: 00:15 Disposition: Home, Self-Care 01 Condition: Good Clinical Impression: Retention of urine - Discharge Information *PRESCRIPTION DRUG MONITORING PROGRAM REVIEWED*: Not Applicable *COPY OF PRESCRIPTION DRUG MONITORING REPORT IN PATIENT MARIA GUADALUPE: Not Applicable Instructions: Indwelling Urinary Catheter Care, Adult Referrals: Xavi Abdul MD [Primary Care Provider] - Additional Instructions: The following information is given to patients seen in the emergency department who are being discharged to home. This information is to outline your options for follow-up care. We provide all patients seen in our emergency department with a follow-up referral. The need for follow-up, as well as the timing and circumstances, are variable depending upon the specifics of your emergency department visit. If you don't have a primary care physician on staff, we will provide you with a referral. We always advise you to contact your personal physician following an emergency department visit to inform them of the circumstance of the visit and for follow-up with them and/or the need for any referrals to a consulting specialist. The emergency department will also refer you to a specialist when appropriate. This referral assures that you have the opportunity for follow-up care with a specialist. All of these measure are taken in an effort to provide you with optimal care, which includes your follow-up. Under all circumstances we always encourage you to contact your private physician who remains a resource for coordinating your care. When calling for follow-up care, please make the office aware that this follow-up is from your recent emergency room visit. If for any reason you are refused follow-up, please contact the [facility] Emergency Department at and asked to speak to the emergency department charge nurse. [facility] Specialty [facility] - Urology [address] [place] [id number] Sepsis Event Note (ED) - Evaluation Sepsis Screening Result: No Definite Risk - Focused Exam Vital Signs: Vital Signs Temp Pulse Resp BP Pulse Ox 11/18/19 23:40 36.1 C 120 H 20 157/98 H 97
[2019-11-19 02:05] VITALS: BP 127/68; PULSE 95
== END 2019-11-19 01:00 | disposition home or self-care (01) ==
LOC: MW.ED 23:04
DX: R33.9 Retention of urine, unspecified (principal); I10 Essential (primary) hypertension; E78.00 Pure hypercholesterolemia, unspecified; E10.9 Type 1 diabetes mellitus without complications; E66.9 Obesity, unspecified; Z68.34 Body mass index [BMI] 34.0-34.9, adult; Z91.040 Latex allergy status; Z79.82 Long term (current) use of aspirin; Z79.899 Other long term (current) drug therapy; Z79.84 Long term (current) use of oral hypoglycemic drugs
CPT/HCPCS: 51702; 81001; 99283-25

== ENCOUNTER 2020-03-31 06:34 | Emergency (ER) | payer BC ==
[2020-03-31 06:56] VITALS: PULSE 79
[2020-03-31] MEDS ORDERED: Sodium Chloride 0.9% 2.5 ML Syringe FLUSH PRN (06:57)
[2020-03-31] MEDS ORDERED: Sodium Chloride 0.9% 10 ML Syringe FLUSH PRN (06:57)
--- NOTE | 2020-03-31 06:59 | EDM.PDOC ---
ED HPI GENERAL MEDICAL PROBLEM - General Chief Complaint: Chest Pain Stated Complaint: CHEST PAIN Time Seen by Provider: 03/31/20 06:54 Source of Information: Reports: Patient, Old Records History Limitations: Reports: No Limitations - History of Present Illness INITIAL COMMENTS - FREE TEXT/NARRATIVE: There is a very pleasant 54-year-old man with a past medical history of insulin- dependent diabetes mellitus, hypertension, hyperlipidemia, and recent tobacco use presenting with chest discomfort. He describes intermittent episodes of chest discomfort over the past 4 to 5 days. This episode started about 330 this morning and woke him up from sleep. He describes left-sided chest pressure that radiates to the left arm and to the left scapula. Associated with diaphoresis and one episode of nonbloody emesis. Pain somewhat improved when he takes a deep breath. He took 1 dose of baby aspirin prior to arrival. He denies any exertional chest discomfort or shortness of breath over the past few weeks. No prior history of DE, PCI, or CABG. He denies any fever, chills, cough, hemoptysis, injury to the chest wall, or recurrent vomiting. Patient denies history of venous thromboembolism, lower extremity pain or swelling, hemoptysis, recent surgery or immobilization or long travel, history of active malignancy, or hormonal medication/product usage. ROS: A 10-point review of systems was negative, except as noted in the HPI (or in the ROS section of this note). Past medical history: Reviewed, no additional pertinent history. Surgical history: Reviewed in system, no additional pertinent history. Social history: Reviewed in system, no additional pertinent history. Family history: Reviewed in system, no additional pertinent history. PHYSICAL EXAM Vital signs reviewed. Nursing notes reviewed. Constitutional: Awake, alert, non-distressed. Head: Normocephalic, atraumatic. Eyes: EOMI, conjunctiva normal, no discharge, no scleral icterus. Ears, Nose, Throat: External ears and nose normal, moist oral mucosa. Cardiovascular: 2+ radial pulses bilaterally, capillary refill less than 2 seconds. No lower extremity edema. Pulmonary: normal work of breathing, no accessory muscle use. Abdomen/GI: Soft, nontender, nondistended, no guarding or rigidity, no masses. Musculoskeletal: No deformities. Integumentary: Appropriate color for ethnicity, warm, dry, no pallor or jaundice, no rash. Neurologic: Alert, answering questions appropriately, normal speech, no facial droop, moving all extremities well. Psychiatric: Appropriate mood and affect, normal thought process. This patient was seen and evaluated during the 2019 SARS-CoV-2 novel coronavirus pandemic period. Community viral transmission is ongoing at time of this encounter and the emergency department is operating under pandemic response procedures. left sided c/p Pain Score (Numeric/FACES): 4 - Related Data Allergies Allergy/AdvReac Type Severity Reaction Status Date / Time latex Allergy Rash Verified 03/31/20 06:42 Home Meds: Home Meds Aspirin [Ifeoma Chewable Aspirin] 81 mg PO DAILY 08/22/13 [History] atorvaSTATin [Lipitor] 40 mg PO BEDTIME 08/22/13 [History] Insuln Asp Prot/Insulin Aspart [NovoLOG Mix 70-30] 50 unit SUBCUT BID 06/11/19 [History] metFORMIN HCl [Metformin HCl] 1,000 mg PO BIDMEALS 06/11/19 [History] Ramipril 10 mg PO DAILY 03/31/20 [History] Past Medical History HEENT History: Reports: None Cardiovascular History: Reports: High Cholesterol, Hypertension Respiratory History: Reports: None Gastrointestinal History: Reports: GERD Genitourinary History: Reports: Renal Calculus Musculoskeletal History: Reports: Back Pain, Chronic Neurological History: Reports: None Psychiatric History: Reports: None Endocrine/Metabolic History: Reports: Diabetes, Type I, Obesity/BMI 30+ Insulin Pump Model and Clamshell Operator: None Hematologic History: Reports: None Immunologic History: Reports: None Oncologic (Cancer) History: Reports: None Dermatologic History: Reports: None - Infectious Disease History Infectious Disease History: Reports: Chicken Pox - Past Surgical History Head Surgeries/Procedures: Reports: None HEENT Surgical History: Reports: None Cardiovascular Surgical History: Reports: None Respiratory Surgical History: Reports: None GI Surgical History: Reports: Cholecystectomy Male Surgical History: Reports: None Endocrine Surgical History: Reports: None Neurological Surgical History: Reports: None Musculoskeletal Surgical History: Reports: Shoulder Surgery Dermatological Surgical History: Reports: None Social & Family History - Family History Family Medical History: No Pertinent Family History HEENT: Reports: Cataract Cardiac: Reports: Hypertension, DE Other Cardiac Family History: pt states that his mother had open heart surgery due to an DE Dermatologic: Reports: Psoriasis Other Dermatologic Family History: pt states that his brother has psoriasis - Tobacco Use Tobacco Use Status *Q: Former Tobacco User Used Tobacco, but Quit: Yes Month/Year Tobacco Last Used: 2020 - Caffeine Use Caffeine Use: Reports: Coffee - Recreational Drug Use Recreational Drug Use: No - Living Situation & Occupation Living situation: Reports: Occupation: Employed ED ROS GENERAL - Review of Systems Review Of Systems: See Below ED EXAM, GENERAL - Physical Exam Exam: See Below #1 Interpretation EKG Interpretation Comments: 12-Lead ECG Interpretation Acquired: 6:36 AM Rhythm: Sinus rhythm Rate: 87 bpm [place]: Normal Intervals: Normal Ectopy: None RV Strain: No obvious RV strain pattern. ST Segments/T-Waves: No notable changes Acute Ischemic Changes: None apparent Interpretation: No STEMI Course - Vital Signs Text/Narrative:: 54-year-old man presenting with several hours of left-sided chest pain radiating to the arm and back along with diaphoresis and vomiting. Patient hemodynamically stable, afebrile, well-appearing, looks nontoxic. Differential diagnosis includes but is not limited to: ACS, pulmonary embolism, aortic dissection, acute systolic heart failure, pneumonia, pneumothorax, pericardial effusion, pleural effusion, pericarditis, endocarditis, esophageal rupture, GERD, drug-induced chest pain, chest wall pain, and many others. 7:12 AM: Twelve-lead EKG looks nonischemic. IV access established and labs are sent. Patient will need a D-dimer as well and a 3-hour repeat troponin and ECG. He will be given full dose aspirin and is going down for chest x-rays. He is resting comfortably. Intermediate risk with a HEART score of 4. 7:34 AM: Blood work is reassuring, negative troponin, D-dimer pending. Chest x- ray is read pending. 8:02 AM: D-dimer negative, waiting for repeat troponin and ECG. 8:17 AM: The patient advised me that he wants to leave the hospital AGAINST MEDICAL ADVICE. I did recommend that he stay for period of observation for serial troponin testing and EKG monitoring given that he is not low risk by the HEART score. The patient is concerned about his who is sitting out in the truck outside who cannot drive because she does not have a patient transportation driver's license. I did attempt to troubleshoot by seeing if anyone can come pick up attendant his to take her home, the patient has no one that can do this and he is worried about her. He wants to leave the emergency department immediately AGAINST MEDICAL ADVICE so he can take his home. He appears to have capacity and is calm and rational and able to make his own medical decisions. I did relationship counselor him to return to the emergency department immediately if he had worsening chest pain, shortness of breath, or any other new or concerning symptoms. I instructed him to follow-up with his primary medical doctor in the next 2 to 3 days for close reevaluation and to continue taking his prescribed medications. He voiced understanding and had no further questions. He was subsequently discharged AGAINST MEDICAL ADVICE. Plan: Discharged AGAINST MEDICAL ADVICE HEART Score for Major Cardiac Events RESULT SUMMARY: 4 points Moderate Score (4-6 points) Risk of MACE of 12-16.6%. INPUTS: History > 2 = Highly suspicious EKG > 0 = Normal Age > 1 = 45-64 Risk factors > 1 = 1-2 risk factors Initial troponin > 0 = ?normal limit Last Recorded V/S: Last Vital Signs Temp 35.9 C L 03/31/20 06:45 Pulse 79 03/31/20 07:45 Resp 18 03/31/20 07:45 BP 109/57 L 03/31/20 07:45 Pulse Ox 94 L 03/31/20 07:45 - Orders/Labs/Meds Orders: Active Orders 24 hr Category Date Time Status Cardiac Monitoring [RC] . DIRECTED Care 03/31/20 06:57 Active EKG Documentation Completion [RC] STAT Care 03/31/20 06:57 Active Pulse Oximetry [RC] ASDIRECTED Care 03/31/20 06:57 Active TROPONIN I [CHEM] Routine Lab 03/31/20 09:40 Ordered Sodium Chloride 0.9% [Saline Flush] Med 03/31/20 06:57 Active 10 ml FLUSH ASDIRECTED PRN Sodium Chloride 0.9% [Saline Flush] Med 03/31/20 06:57 Active 2.5 ml FLUSH ASDIRECTED PRN Saline Lock Insert [OM.PC] Stat Ot 03/31/20 06:58 Ordered Medication Orders Sodium Chloride (Saline Flush) 10 ml FLUSH ASDIRECTED PRN PRN Reason: Keep Vein Open Last Admin: 03/31/20 07:19 Dose: 10 ml Documented by: CARINA Sodium Chloride (Saline Flush) 2.5 ml FLUSH ASDIRECTED PRN PRN Reason: Keep Vein Open Last Admin: 03/31/20 07:19 Dose: 2.5 ml Documented by: CARINA Labs: Laboratory Tests 03/31/20 03/31/20 03/31/20 Range/Units 06:40 06:40 06:40 WBC 10.70 (4.0-11.0) K/uL RBC 4.50 (4.50-5.90) M/uL Hgb 14.7 (13.0-17.0) g/dL Hct 45.3 (38.0-50.0) % MCV 100.7 H (80.0-98.0) fL MCH 32.7 H (27.0-32.0) pg MCHC 32.5 (31.0-37.0) g/dL RDW Std Deviation 51.7 (28.0-62.0) fl RDW Coeff of Benny 14 (11.0-15.0) % Plt Count 236 (150-400) K/uL MPV 10.80 (7.40-12.00) fL Neut % (Auto) 63.2 (48.0-80.0) % Lymph % (Auto) 25.6 (16.0-40.0) % [place] % (Auto) 9.8 (0.0-15.0) % Eos % (Auto) 1.2 (0.0-7.0) % Baso % (Auto) 0.2 (0.0-1.5) % Neut # (Auto) 6.8 H (1.4-5.7) K/uL Lymph # (Auto) 2.7 H (0.6-2.4) K/uL [place] # (Auto) 1.1 H (0.0-0.8) K/uL Eos # (Auto) 0.1 (0.0-0.7) K/uL Baso # (Auto) 0.0 (0.0-0.1) K/uL Nucleated RBC % 0.0 /100WBC Nucleated RBCs # 0 K/uL D-Dimer, Quantitative 0.30 (0.0-0.50) mg/L FEU Sodium 140 (136-148) mmol/L Potassium 4.6 (3.5-5.1) mmol/L Chloride 107 (98-107) mmol/L Carbon Dioxide 22.6 (21.0-32.0) mmol/L BUN 15 (7.0-18.0) mg/dL Creatinine 0.9 (0.8-1.3) mg/dL Est Cr Clr Drug Dosing 98.77 mL/min Estimated GFR (MDRD) > 60.0 ml/min Glucose 177 H (74-106) mg/dL Calcium 8.9 (8.5-10.1) mg/dL Total Bilirubin 0.7 (0.2-1.0) mg/dL AST 16 (15-37) IU/L ALT 21 (14-63) IU/L Alkaline Phosphatase 57 (46-116) U/L Troponin I < 0.050 (0.000-0.056) ng/mL Total Protein 7.2 (6.4-8.2) g/dL Albumin 3.5 (3.4-5.0) g/dL Globulin 3.7 (2.6-4.0) g/dL Albumin/Globulin Ratio 0.9 (0.9-1.6) Meds: Medications Generic Name Dose Route Start Last Admin Trade Name Nateq PRN Reason Stop Dose Admin Sodium Chloride 10 ml 03/31/20 06:57 03/31/20 07:19 Saline Flush FLUSH 10 ml ASDIRECTED PRN Administration Keep Vein Open Sodium Chloride 2.5 ml 03/31/20 06:57 03/31/20 07:19 Saline Flush FLUSH 2.5 ml ASDIRECTED PRN Administration Keep Vein Open Discontinued Medications Generic Name Dose Route Start Last Admin Trade Name Freq PRN Reason Stop Dose Admin Aspirin 324 mg 03/31/20 07:08 03/31/20 07:18 Aspirin PO 03/31/20 07:09 324 mg ONETIME ONE Administration Departure - Departure Time of Disposition: 08:19 Disposition: Against Medical Advice 07 Condition: Good Clinical Impression: Atypical chest pain, Left against medical advice Instructions: Nonspecific Chest Pain, Adult Referrals: [facility] - Family Practice [Provider Group] - 2 Days (For follow-up of chest pain.) Forms: ED Department Discharge Additional Instructions: You were seen in the emergency department for chest pain. We did recommend you allow us to keep you in the hospital today to perform further blood testing and further EKG monitoring. At this point you are choosing to leave the emergency department against our professional medical advice. You understand that this could risk worsening of disease or possible . You accept these risks. You can return to the emergency department anytime if you change your mind or if any of your symptoms worsen. Please follow-up with a primary medical doctor in the next 1 to 2 days for further work-up and evaluation of your complaints of chest pain. If your symptoms get worse, call 911 or come back to the ER at once. Please return the emergency department immediately if your symptoms worsen or if you feel worse. Thank you for choosing the [facility] emergency department in [place] for your medical needs today. It was a pleasure caring for you. The following information is given to patients seen in the emergency department who are being discharged. This information is to outline your options for follow-up care. We provide all patients seen in our emergency department with a follow-up referral. The need for follow-up, as well as the timing and circumstances, are variable depending upon the specifics of your emergency department visit. If you don't have a primary care physician on staff, we will provide you with a referral. We always advise you to contact your personal physician following an emergency department visit to inform them of the circumstance of the visit and for follow-up with them and/or the need for any referrals to a consulting specialist. The emergency department will also refer you to a specialist when appropriate. This referral assures that you have the opportunity for follow-up care with a specialist. All of these measure are taken in an effort to provide you with optimal care, which includes your follow-up. Under all circumstances we always encourage you to contact your private physician who remains a resource for coordinating your care. When calling for follow-up care, please make the office aware that this follow-up is from your recent emergency room visit. If for any reason you are refused follow-up, please contact the [facility] Emergency Department at and asked to speak to the emergency department charge nurse. If you do not have a primary care physician that is caring for you, you can contact these clinics below to set up an appointment to establish care: [facility] - Primary Care [address] [place] [address] [facility] [address] [place] [id number] Sepsis Event Note (ED) - Evaluation Sepsis Screening Result: No Definite Risk - Focused Exam Vital Signs: Vital Signs Temp Pulse Resp BP Pulse Ox 03/31/20 07:45 79 18 109/57 L 94 L 03/31/20 07:05 79 18 114/56 L 96 03/31/20 06:45 35.9 C L 79 18 145/71 H 96 - My Orders Last 24 Hours: My Active Orders 03/31/20 06:57 Cardiac Monitoring [RC] . DIRECTED EKG Documentation Completion [RC] STAT Pulse Oximetry [RC] ASDIRECTED Sodium Chloride 0.9% [Saline Flush] 10 ml FLUSH ASDIRECTED PRN Sodium Chloride 0.9% [Saline Flush] 2.5 ml FLUSH ASDIRECTED PRN 03/31/20 06:58 Saline Lock Insert [OM.PC] Stat 03/31/20 09:40 TROPONIN I [CHEM] Routine - Assessment/Plan Last 24 Hours: My Active Orders 03/31/20 06:57 Cardiac Monitoring [RC] . DIRECTED EKG Documentation Completion [RC] STAT Pulse Oximetry [RC] ASDIRECTED Sodium Chloride 0.9% [Saline Flush] 10 ml FLUSH ASDIRECTED PRN Sodium Chloride 0.9% [Saline Flush] 2.5 ml FLUSH ASDIRECTED PRN 03/31/20 06:58 Saline Lock Insert [OM.PC] Stat 03/31/20 09:40 TROPONIN I [CHEM] Routine
[2020-03-31] MEDS ORDERED: Aspirin 81 MG Tab.Chew PO ONE (07:08)
[2020-03-31 07:22] LABS: BLOOD UREA NITROGEN,BUN 15 mg/dL (7.0-18.0); CARBON DIOXIDE,CO2 22.6 mmol/L (21.0-32.0); CHLORIDE,CL 107 mmol/L (98-107); GLUCOSE RANDOM 177 mg/dL (74-106); POTASSIUM,K 4.6 mmol/L (3.5-5.1); SODIUM,NA 140 mmol/L (136-148)
[2020-03-31 07:46] VITALS: BP 109/57
--- NOTE | 2020-03-31 07:58 | CR ---
Indication: Chest pain. Technique: PA and lateral (2) views of the chest. Comparison: 06/11/2019 Findings: Normal heart and mediastinum. Lungs and pleural spaces clear. No acute or aggressive osseous abnormality. Impression: Normal chest radiograph. Dictated by Cecilio Delatorre MD @ Mar 31 2020 7:55AM Signed by Dr. Cecilio Delatorre @ Mar 31 2020 7:57AM
== END 2020-03-31 08:22 | disposition left against medical advice (07) ==
LOC: MW.ED 06:34
DX: R07.89 Other chest pain (principal); E78.00 Pure hypercholesterolemia, unspecified; I10 Essential (primary) hypertension; E10.9 Type 1 diabetes mellitus without complications; E66.9 Obesity, unspecified; Z68.30 Body mass index [BMI] 30.0-30.9, adult; Z87.891 Personal history of nicotine dependence; Z91.040 Latex allergy status; Z79.82 Long term (current) use of aspirin; Z79.899 Other long term (current) drug therapy; Z79.84 Long term (current) use of oral hypoglycemic drugs
CPT/HCPCS: 36415; 71046; 80053; 84484; 85025; 85379; 93005; 99285; A9270; 93010; 99284

== ENCOUNTER 2020-11-26 12:03 | Day surgery (SDC) | payer BC ==
[2020-11-26] MEDS ORDERED: Ropivacaine 0.5% 5 MG/ML 30 ML SDV INJECT ONE (13:00)
[2020-11-26] MEDS ORDERED: Lidocaine 2% 5 ML SDV INJECT ONE (13:00)
[2020-11-26] MEDS ORDERED: Iopamidol 200-M 10 ML vial ITHECAL ONE (13:00)
[2020-11-26] MEDS ORDERED: Betamethasone Acetate/Betamethasone Sod Phosphate 30 MG/5 ML MDV EPIDUR ONE (13:00)
--- NOTE | 2020-11-26 17:25 | OR ---
SURGEON: Yumiko Hill D.O. DATE OF PROCEDURE: 11/26/2020 PRIMARY SURGEON: Yumiko Hill D.O. PRODUCT ASSEMBLER: OR staff present: 1. Nyasia Rachel RT. 2. Nyasia Byrne RN. 3. Nyasia Mcfadden RN. WOUND CLASS: I. PREOPERATIVE DIAGNOSES: 1. Failed back surgery syndrome. 2. Left lower extremity, L4, L5, and S1 radiculopathy. POSTOPERATIVE DIAGNOSES: 1. Failed back surgery syndrome. 2. Left lower extremity, L4, L5, and S1 radiculopathy. PROCEDURE PERFORMED: 1. Left L4 transforaminal epidural steroid injection. 2. Left S1 transforaminal epidural steroid injection. 3. Fluoroscopic guidance for needle placement. 4. Local with oral Valium for sedation. SCREENING QUESTIONS: The patient answered "no" to all of the following questions: 1. Are you allergic to iodine, Betadine or latex? 2. Do you have a bleeding disorder? 3. Do you have any joint replacements, heart valve replacements, or a pacemaker? 4. Are you allergic to anti-inflammatories or blood thinners? 5. Do you have any current local or systemic infections? DESCRIPTION OF PROCEDURE: The patient had the procedure thoroughly explained including risks, benefits and alternatives. Consent was signed in my clinic indicating understanding and willingness to proceed. The patient presented to [facility] where the patient was escorted to the dressing room to disrobe and change into a hospital gown. Preoperative vital signs were taken and stable. The patient reported that Valium was taken prior to the procedure. The patient was brought to the procedure room and placed in the prone position on the table. A pillow was placed under the abdomen in order to flatten the lumbar lordosis. The back was prepped with ChloraPrep and sterilely draped. All personnel in the operating room were dressed in appropriate attire including surgical scrubs, head and shoe covers. This was to ensure sterility while in the treatment room. During the time fluoroscopy was in use, all personnel in the operating room wore lead hand with thyroid collars. Sterile technique was used during the procedure. The fluoroscope was placed for the left L4 transforaminal epidural steroid injections. There was no sign of infection at the skin site for needle insertion. The skin was anesthetized with 2% lidocaine with a 27 gauge 1-1/2 inch needle. Then, a 22 gauge 3-1/2 inch spinal needle, advanced to the left L4 and S1. Under direct fluoroscopic guidance needle position was verified in three views; AP, oblique and lateral, with 0.2 cubic centimeters increments of Isovue-200 dye. No intravascular flow pattern was observed under live fluoroscopy. Then 6 milligrams of Celestone and local was slowly injected after negative aspiration of heme, cerebrospinal fluid and no paresthesias were noted. The needle was cleared prior to removal from the skin. Then the left S1 transforaminal injection was done as above. No adverse reactions were noted. The patient was brought to the recovery room awake and in good condition by my staff. The patient was monitored and discharge instructions were given after a brief stay in the recovery area. Both oral and written discharge and follow up instructions were given. The patient will follow up in the clinic in 3-4 weeks post procedure to evaluate the efficacy. The patient verbalized understanding including understanding of those signs and symptoms that would require emergency care and knows how to contact the office if there are any problems or questions in the meantime. PREOPERATIVE PAIN: 6+/10. POSTOPERATIVE PAIN: 3 to 4/10. FOLLOWUP: Follow up in the Pain Clinic in 3 weeks. CARLOS A / OBINNA /[id number] KRISTIAN
== END 2020-11-26 14:35 ==
LOC: MW.SDS 12:03
PROVIDERS: ATTEND Anesthesiology
DX: M96.1 Postlaminectomy syndrome, not elsewhere classified (principal); M54.16 Radiculopathy, lumbar region; M48.061 Spinal stenosis, lumbar region without neurogenic claudication; M51.16 Intervertebral disc disorders with radiculopathy, lumbar region; M51.17 Intervertebral disc disorders with radiculopathy, lumbosacral region; M79.18 Myalgia, other site; M43.16 Spondylolisthesis, lumbar region; M47.27 Other spondylosis with radiculopathy, lumbosacral region; N40.1 Benign prostatic hyperplasia with lower urinary tract symptoms; E10.42 Type 1 diabetes mellitus with diabetic polyneuropathy; N13.8 Other obstructive and reflux uropathy; Z91.040 Latex allergy status; Z79.82 Long term (current) use of aspirin; Z79.899 Other long term (current) drug therapy; F17.200 Nicotine dependence, unspecified, uncomplicated
CPT/HCPCS: 64483; 64484; J0702; J2795; Q9966

== ENCOUNTER 2022-04-21 10:04 | Emergency (ER) | payer OTHER, BC ==
[2022-04-21 10:18] VITALS: BP 141/93; PULSE 83
[2022-04-21] MEDS ORDERED: Acetaminophen/HYDROcodone 325-10 MG Tab PO ONE (10:27)
== END 2022-04-21 12:05 | disposition home or self-care (01) ==
LOC: MW.ED 10:04
DX: S20.212A Contusion of left front wall of thorax, initial encounter (principal); E78.00 Pure hypercholesterolemia, unspecified; I10 Essential (primary) hypertension; E13.9 Other specified diabetes mellitus without complications; E66.9 Obesity, unspecified; Z68.30 Body mass index [BMI] 30.0-30.9, adult; Z91.040 Latex allergy status; Z79.84 Long term (current) use of oral hypoglycemic drugs; Z79.899 Other long term (current) drug therapy; W22.8XXA Striking against or struck by other objects, initial encounter; Y92.480 Sidewalk as the place of occurrence of the external cause
CPT/HCPCS: 71101; 99284; A9270

== ENCOUNTER 2022-09-24 02:41 | Emergency (ER) | payer BC, OTHER ==
[2022-09-24 03:04] VITALS: BP 155/75; PULSE 92
== END 2022-09-24 03:26 | disposition home or self-care (01) ==
LOC: MW.ED 02:41
DX: R33.9 Retention of urine, unspecified (principal); E78.5 Hyperlipidemia, unspecified; I10 Essential (primary) hypertension; E10.9 Type 1 diabetes mellitus without complications; E66.9 Obesity, unspecified; Z68.35 Body mass index [BMI] 35.0-35.9, adult; Z91.040 Latex allergy status; Z79.84 Long term (current) use of oral hypoglycemic drugs; Z79.899 Other long term (current) drug therapy
CPT/HCPCS: 51702; 99283

== ENCOUNTER 2023-03-03 05:40 | Emergency (ER) | payer OTHER, BC ==
[2023-03-03] MEDS ORDERED: Ketorolac 30 MG/ML SDV IM ONE (05:58)
[2023-03-03] MEDS ORDERED: Lidocaine 4% 1 each Patch TOP SCH (06:15)
[2023-03-03 06:31] LABS: BASOPHILS ABSOLUTE AUTO 0.04 K/uL (0.00-0.20); BASOPHILS PERCENT AUTO 0.5 % (0.0-1.0); EOSINOPHILS ABSOLUTE AUTO 0.15 K/uL (0.00-0.45); EOSINOPHILS PERCENT AUTO 1.8 % (0.0-6.0); HEMATOCRIT 45.6 % (42.0-52.0); IMMATURE GRAN ABSOLUTE AUTO 0.02 K/uL (0.00-0.05); IMMATURE GRAN PERCENT AUTO 0.2 % (0.0-0.4); LYMPHOCYTES ABSOLUTE AUTO 2.21 K/uL (1.00-4.80); LYMPHOCYTES PERCENT AUTO 26.3 % (24.0-44.0); MEAN CORPUSCULAR HEMOGLOBIN 31.9 pg (28.0-32.0); MEAN CORPUSCULAR HGB CONC 32.9 g/dL (32.0-36.0); MEAN PLATELET VOLUME 10.9 fL (9.4-12.4); MONOCYTES ABSOLUTE AUTO 0.79 K/uL (0.00-0.80); MONOCYTES PERCENT AUTO 9.4 % (0.0-8.0); NEUTROPHILS ABSOLUTE AUTO 5.18 K/uL (1.80-7.70); NEUTROPHILS PERCENT AUTO 61.8 % (41.0-71.0); PLATELET COUNT,PLT 187 K/uL (150-400); WHITE BLOOD CELL COUNT,WBC 8.39 K/uL (3.9-11.3)
[2023-03-03 06:55] LABS: BLOOD UREA NITROGEN,BUN 15 mg/dL (7.0-18.0); CARBON DIOXIDE,CO2 28.7 mmol/L (21.0-32.0); CHLORIDE,CL 105 mmol/L (98-107); EST CRCL DRUG DOSING (CG) 83.14 mL/min; GLUCOSE RANDOM 164 mg/dL (74-106); POTASSIUM,K 5.1 mmol/L (3.5-5.1); SODIUM,NA 142 mmol/L (136-148)
[2023-03-03 06:57] LABS: ESTIMATED GFR 87 mL/min (>60)
[2023-03-03 07:20] VITALS: BP 132/75; PULSE 80
== END 2023-03-03 07:26 | disposition home or self-care (01) ==
LOC: MW.ED 05:40
DX: S20.212A Contusion of left front wall of thorax, initial encounter (principal); J98.11 Atelectasis; E78.00 Pure hypercholesterolemia, unspecified; I10 Essential (primary) hypertension; E10.9 Type 1 diabetes mellitus without complications; E66.9 Obesity, unspecified; Z68.35 Body mass index [BMI] 35.0-35.9, adult; Z91.040 Latex allergy status; Z79.899 Other long term (current) drug therapy; Z79.84 Long term (current) use of oral hypoglycemic drugs; W22.8XXA Striking against or struck by other objects, initial encounter; Y93.I9 Activity, other involving external motion
CPT/HCPCS: 36415; 71046; 80048; 84484; 85025; 93005; 96372; 99285; A9270; J1885; 93010; 99283